=== PATIENT | male | born 1955 | race Caucasian/White ===

== ENCOUNTER 2021-07-18 05:25 | Emergency (ER) | payer MEDICARE, OTHER ==
--- NOTE | 2021-07-18 06:18 | EDM.PDOC ---
<Litzy Garner - Last Filed: 07/18/21 06:28> ED HPI GENERAL MEDICAL PROBLEM - General Chief Complaint: Respiratory Problem Stated Complaint: HIGH BLOOD PRESSURE, HIGH BLOOD SUGAR LEVEL Time Seen by Provider: 07/18/21 05:45 Source of Information: Reports: Patient, RN History Limitations: Reports: No Limitations - History of Present Illness INITIAL COMMENTS - FREE TEXT/NARRATIVE: ED with c/o blood pressure reading high this am and blood sugar higher than usual. BP 180's/100 and BS 140. Has had cold sx since Monday, low grade fever body aches decreased appetite, no nausea or vomiting. Cough non productive, no chills. No headache. No swelling. Unable to sleep due to cough. Has taken OTC cold medication. Has not taken BP med or Metformin for 2 days. - Related Data Allergies Allergy/AdvReac Type Severity Reaction Status Date / Time No Known Allergies Allergy Verified 09/16/20 08:11 Home Meds: Home Meds Aspirin/Calcium Carbonate/Mag [Aspirin Buffered 325 mg Tab] 325 mg PO DAILY 12/16/15 [History] Chlorthalidone 25 mg PO DAILY 12/16/15 [History] Lisinopril 10 mg PO DAILY 12/16/15 [History] Metoprolol Tartrate 25 mg PO BID 12/16/15 [History] Simvastatin 20 mg PO BEDTIME 12/16/15 [History] metFORMIN [Glucophage] 500 mg PO BID 12/16/15 [History] Past Medical History - Past Health History Medical/Surgical History: Denies Medical/Surgical History HEENT History: Reports: None Cardiovascular History: Reports: Hypertension Respiratory History: Reports: None Gastrointestinal History: Reports: None Genitourinary History: Reports: None Musculoskeletal History: Reports: Arthritis Neurological History: Reports: TIA Psychiatric History: Reports: None Endocrine/Metabolic History: Reports: Diabetes, Type II Hematologic History: Reports: None Dermatologic History: Reports: None - Infectious Disease History Infectious Disease History: Reports: None - Past Surgical History Cardiovascular Surgical History: Reports: None Endocrine Surgical History: Reports: None Neurological Surgical History: Reports: None Musculoskeletal Surgical History: Reports: None Social & Family History - Family History Family Medical History: No Pertinent Family History - Tobacco Use Tobacco Use Status *Q: Never Tobacco User Second Hand Smoke Exposure: No - Caffeine Use Caffeine Use: Reports: Coffee - Recreational Drug Use Recreational Drug Use: No ED ROS GENERAL - Review of Systems Review Of Systems: Comprehensive ROS is negative, except as noted in HPI. ED EXAM, GENERAL - Physical Exam Exam: See Below Exam Limited By: No Limitations General Appearance: Alert, Anxious, Mild Distress Eye Exam: Bilateral Eye: EOMI Ears: Normal External Exam, Normal TMs Nose: Normal Inspection Throat/Mouth: Normal Inspection Head: Atraumatic, Normocephalic Neck: Normal Inspection Respiratory/Chest: No Respiratory Distress, Lungs Clear (e), Wheezing (coarse expiratory bilateral lower), Other (frequent bronchial loose cough) Cardiovascular: Normal Peripheral Pulses, Regular Rate, Rhythm, Tachycardia GI/Abdominal: Normal Bowel Sounds, Soft Extremities: Normal Inspection Neurological: Alert, Oriented, Normal Gait, No Motor/Sensory Deficits Psychiatric: Anxious Skin Exam: Warm, Dry, Intact, Tattoo(s) #1 Interpretation EKG Date: 07/18/21 Time: 05:37 Rhythm: NSR [place]: LAD-Left [place] Deviation P-Wave: Present QRS: Normal ST-T: Normal Comparison: NA - No Prior EKG Departure - Departure Disposition: Home, Self-Care 01 Condition: Fair Clinical Impression: Influenza B, Hyperglycemia due to diabetes mellitus, Hypokalemia, Hypomagnesemia, Hyponatremia Hypertension Qualifiers: Hypertension type: unspecified Qualified Code(s): I10 - Essential (primary) hypertension - Discharge Information *PRESCRIPTION DRUG MONITORING PROGRAM REVIEWED*: No *COPY OF PRESCRIPTION DRUG MONITORING REPORT IN PATIENT STUART: No Instructions: Influenza, Adult, [id number], Hyponatremia, [id number] Forms: ED Department Discharge Additional Instructions: take medication as directed humidification diet as tolerated increase fluids tylenol 500mg every 4 hours as needed for discomfort/fever diabetic robitussin or muccinex for cough per label instructions avoid cough cold medications unless labeled for use with hypertension Care Plan Goals: The patient was advised of the examination and lab results during the visit. The patient was given a liter of IV fluids, IV Magnesium, IV Potassium, oral Tessalon Pearles, oral Robitussin AC and an oral dose of Tamiflu. The patient was discharged with scripts for 1) Robitussin AC #150 mL to take 10 mL by mouth every 6 hours as needed, 2) Tamiflu (75 mg) #9 to take 1 by mouth 2 times per day for 5 days and 3) Tessalon Pearles (200 mg) #30 to take 1 by mouth 3 times per day as needed. The patient was encouraged to increase his salt intake and take his medications as prescribed. If the patient has any additional symptoms or concerns, the patient should either return to the emergency department or visit his primary care facility. Sepsis Event Note (ED) - Evaluation Sepsis Screening Result: No Definite Risk <Huseyin Awan - Last Filed: 07/18/21 10:22> Course - Vital Signs Last Recorded V/S: Last Vital Signs Temp 98.4 F 07/18/21 09:43 Pulse 103 H 07/18/21 09:43 Resp 20 07/18/21 09:43 BP 177/99 H 07/18/21 09:43 Pulse Ox 97 07/18/21 09:43 - Orders/Labs/Meds Orders: Active Orders 24 hr Category Date Time Status Blood Glucose Check, Bedside [RC] ONETIME Care 07/18/21 05:35 Active Chest 2V [CR] Urgent Exams 07/18/21 07:16 Stop Req CULTURE BLOOD [BC] Stat Lab 07/18/21 05:55 Received Sodium Chloride 0.9% [Normal Saline] 1,000 ml Med 07/18/21 06:38 Active IV .BOLUS Medication Orders Sodium Chloride (Normal Saline) 1,000 mls @ 100 mls/hr IV .BOLUS ONE Stop: 07/18/21 16:37 Last Admin: 07/18/21 06:47 Dose: 100 mls/hr Documented by: DINESH Labs: Laboratory Tests 07/18/21 07/18/21 07/18/21 Range/Units 05:31 05:55 05:55 WBC 8.2 (5.0-10.0) 10^3/uL RBC 4.19 L (4.6-6.2) 10^6/uL Hgb 12.3 L D (14.0-18.0) g/dL Hct 35.0 L (40.0-54.0) % MCV 83.5 D (80-100) fL MCH 29.4 (27.0-34.0) pg MCHC 35.1 H (33.0-35.0) g/dL Plt Count 159 D (150-450) 10^3/uL Neut % (Auto) 78.7 H (42.2-75.2) % Lymph % (Auto) 8.2 L (20.5-50.1) % Ballard % (Auto) 12.4 H (2-8) % Eos % (Auto) 0.5 L (1.0-3.0) % Baso % (Auto) 0.2 (0.0-1.0) % Sodium (136-145) mmol/L Potassium (3.5-5.1) mmol/L Chloride (98-107) mmol/L Carbon Dioxide (21-32) mmol/L Anion Gap (7-13) mEq/L BUN (7-18) mg/dL Creatinine (0.70-1.30) mg/dL Est Cr Clr Drug Dosing mL/min Estimated GFR (MDRD) BUN/Creatinine Ratio (No establ ref range) Glucose (70-99) mg/dL POC Glucose 218 H (70-99) mg/dL Lactic Acid (0.4-2.0) mmol/L Calcium (8.5-10.1) mg/dL Magnesium (1.8-2.4) mg/dL Total Bilirubin (0.2-1.0) mg/dL AST (15-37) U/L ALT (16-63) U/L Alkaline Phosphatase (46-116) U/L Troponin I High Sens (<=76) pg/mL Total Protein (6.4-8.2) g/dL Albumin (3.4-5.0) g/dL Globulin Albumin/Globulin Ratio SARS-CoV-2 RNA (BEN) Negative (NEGATIVE) 07/18/21 07/18/21 07/18/21 Range/Units 05:55 05:55 05:55 WBC (5.0-10.0) 10^3/uL RBC (4.6-6.2) 10^6/uL Hgb (14.0-18.0) g/dL Hct (40.0-54.0) % MCV (80-100) fL MCH (27.0-34.0) pg MCHC (33.0-35.0) g/dL Plt Count (150-450) 10^3/uL Neut % (Auto) (42.2-75.2) % Lymph % (Auto) (20.5-50.1) % Ballard % (Auto) (2-8) % Eos % (Auto) (1.0-3.0) % Baso % (Auto) (0.0-1.0) % Sodium 125 L (136-145) mmol/L Potassium 3.2 L (3.5-5.1) mmol/L Chloride 86 L (98-107) mmol/L Carbon Dioxide 27 (21-32) mmol/L Anion Gap 15.2 H (7-13) mEq/L BUN 8 (7-18) mg/dL Creatinine 1.06 (0.70-1.30) mg/dL Est Cr Clr Drug Dosing 69.82 mL/min Estimated GFR (MDRD) > 60 BUN/Creatinine Ratio 7.5 (No establ ref range) Glucose 219 H (70-99) mg/dL POC Glucose (70-99) mg/dL Lactic Acid 2.1 H* (0.4-2.0) mmol/L Calcium 8.6 (8.5-10.1) mg/dL Magnesium 1.3 L (1.8-2.4) mg/dL Total Bilirubin 0.4 (0.2-1.0) mg/dL AST 17 (15-37) U/L ALT 26 (16-63) U/L Alkaline Phosphatase 114 (46-116) U/L Troponin I High Sens 6 (<=76) pg/mL Total Protein 7.6 (6.4-8.2) g/dL Albumin 4.2 (3.4-5.0) g/dL Globulin 3.4 Albumin/Globulin Ratio 1.2 SARS-CoV-2 RNA (BEN) (NEGATIVE) 07/18/21 Range/Units 09:53 WBC (5.0-10.0) 10^3/uL RBC (4.6-6.2) 10^6/uL Hgb (14.0-18.0) g/dL Hct (40.0-54.0) % MCV (80-100) fL MCH (27.0-34.0) pg MCHC (33.0-35.0) g/dL Plt Count (150-450) 10^3/uL Neut % (Auto) (42.2-75.2) % Lymph % (Auto) (20.5-50.1) % Ball[place] % (Auto) (2-8) % Eos % (Auto) (1.0-3.0) % Baso % (Auto) (0.0-1.0) % Sodium 125 L (136-145) mmol/L Potassium 3.3 L (3.5-5.1) mmol/L Chloride 85 L (98-107) mmol/L Carbon Dioxide 28 (21-32) mmol/L Anion Gap 15.3 H (7-13) mEq/L BUN 7 (7-18) mg/dL Creatinine 0.93 (0.70-1.30) mg/dL Est Cr Clr Drug Dosing 79.58 mL/min Estimated GFR (MDRD) > 60 BUN/Creatinine Ratio (No establ ref range) Glucose 161 H (70-99) mg/dL POC Glucose (70-99) mg/dL Lactic Acid (0.4-2.0) mmol/L Calcium 8.4 L (8.5-10.1) mg/dL Magnesium 2.0 (1.8-2.4) mg/dL Total Bilirubin (0.2-1.0) mg/dL AST (15-37) U/L ALT (16-63) U/L Alkaline Phosphatase (46-116) U/L Troponin I High Sens (<=76) pg/mL Total Protein (6.4-8.2) g/dL Albumin (3.4-5.0) g/dL Globulin Albumin/Globulin Ratio SARS-CoV-2 RNA (BEN) (NEGATIVE) Meds: Medications Generic Name Dose Route Start Last Admin Trade Name Freq PRN Reason Stop Dose Admin Sodium Chloride 1,000 mls @ 100 mls/hr 07/18/21 06:38 07/18/21 06:47 Normal Saline IV 07/18/21 16:37 100 mls/hr .BOLUS ONE Administration Discontinued Medications Generic Name Dose Route Start Last Admin Trade Name Freq PRN Reason Stop Dose Admin Benzonatate 200 mg 07/18/21 09:45 07/18/21 09:49 Benzonatate 100 Mg Cap PO 07/18/21 09:46 200 mg ONETIME ONE Administration Guaifenesin 100 mg 07/18/21 06:41 07/18/21 06:51 Guaifenesin 100 Mg/5 Ml Soln 5 Ml Ud Cup PO 07/18/21 06:42 100 mg ONETIME ONE Administration Magnesium Sulfate 2 gm/ Premix 50 mls @ 25 mls/hr 07/18/21 06:38 07/18/21 06:48 IV 07/18/21 08:37 25 mls/hr ONETIME ONE Administration Potassium Chloride 10 meq/ 100 mls @ 100 mls/hr 07/18/21 06:38 07/18/21 06:52 Premix IV 07/18/21 07:37 100 mls/hr ONETIME ONE Administration Oseltamivir Phosphate 75 mg 07/18/21 07:37 07/18/21 07:44 Oseltamivir 75 Mg Cap PO 07/18/21 07:38 75 mg ONETIME ONE Administration Departure - Departure Time of Disposition: 10:16 Sepsis Event Note (ED) - Focused Exam Vital Signs: Vital Signs Temp Pulse Resp BP Pulse Ox 07/18/21 09:43 98.4 F 103 H 20 177/99 H 97 07/18/21 05:41 99.7 F 119 H 20 189/90 H 96 - My Orders Last 24 Hours: My Active Orders 07/18/21 07:16 Chest 2V [CR] Urgent - Assessment/Plan Last 24 Hours: My Active Orders 07/18/21 07:16 Chest 2V [CR] Urgent
--- NOTE | 2021-07-18 06:19 | CR ---
PROCEDURE INFORMATION: Exam: XR Chest Exam date and time: 07/18/2021 5:49 AM Age: 66 years old Clinical indication: Shortness of breath; Additional info: Cough TECHNIQUE: Imaging protocol: XR of the chest. Views: 1 view. COMPARISON: No relevant prior studies available. FINDINGS: Lungs: Unremarkable. No consolidation. Pleural spaces: Unremarkable. No pleural effusion. No pneumothorax. Heart/Mediastinum: Unremarkable. No cardiomegaly. Bones/joints: Unremarkable. IMPRESSION: No acute findings.
[2021-07-18 06:27] LABS: ANION GAP 15.2 mEq/L (7-13); CHLORIDE,CL 86 mmol/L (98-107); SODIUM,NA 125 mmol/L (136-145)
[2021-07-18] MEDS ORDERED: Sodium Chloride 0.9% 1,000 ML IV ONE (06:38)
[2021-07-18] MEDS ORDERED: Potassium Chloride 10 MEQ in Premix Bag 1 BAG IV ONE (06:38)
[2021-07-18] MEDS ORDERED: Magnesium Sulfate/Water 2 GM in Premix Bag 1 BAG IV ONE (06:38)
[2021-07-18] MEDS ORDERED: guaiFENesin 100 MG/5 ML Soln 5 ML UD Cup PO ONE (06:41)
[2021-07-18] MEDS ORDERED: Oseltamivir 75 MG Cap PO ONE (07:37)
[2021-07-18 09:44] VITALS: BP 177/99; PULSE 103
[2021-07-18] MEDS ORDERED: Benzonatate 100 MG Cap PO ONE (09:45)
[2021-07-18 10:11] LABS: ANION GAP 15.3 mEq/L (7-13); CHLORIDE,CL 85 mmol/L (98-107); SODIUM,NA 125 mmol/L (136-145)
== END 2021-07-18 10:36 | disposition home or self-care (01) ==
LOC: DL.ED 05:25
DX: J10.1 Influenza due to other identified influenza virus with other respiratory manifestations (principal); E11.65 Type 2 diabetes mellitus with hyperglycemia; E87.6 Hypokalemia; E87.1 Hypo-osmolality and hyponatremia; E83.42 Hypomagnesemia; E11.9 Type 2 diabetes mellitus without complications; I10 Essential (primary) hypertension; Z79.82 Long term (current) use of aspirin; Z79.899 Other long term (current) drug therapy
CPT/HCPCS: 36415; 71045; 80048; 80053; 82947; 83605; 83735; 84484; 85025; 87040; 87804; 93005; 96365; 96366; 96368; 99284; A9270; J3475; J3480; J7030; U0002

== ENCOUNTER 2021-07-23 10:14 | Inpatient (IN) | payer MEDICARE, OTHER ==
--- NOTE | 2021-07-23 11:11 | EDM.PDOC ---
ED HPI GENERAL MEDICAL PROBLEM - General Chief Complaint: Respiratory Problem Stated Complaint: INFLUENZA Time Seen by Provider: 07/23/21 10:55 Source of Information: Reports: Patient, RN, RN Notes Reviewed History Limitations: Reports: No Limitations - History of Present Illness INITIAL COMMENTS - FREE TEXT/NARRATIVE: Alan is a 66 y/o male with a history of HTN and diabetes mellitus Type II, who presents to the ED at the request of his PCP from [facility] [address] for complaints of persistent cough, nausea, and constipation. The patient was evaluated in this facility four days ago and was subsequently diagnosed with Influenza B. The patient states he is concerned as his symptoms have not completely resolved despite Tamiflu and Robitussin. He notes he has not experienced a bowel movement for five days, which is not his normal routine. Additionally, he notes nausea with one bout of emesis this morning. He denies fever, shaking chills, dizziness, chest pain/pressure, palpitations, shortness of breath, dyspepsia, hematemesis, dysuria, hematuria, or hematochezia. Abdomen Pain Score (Numeric/FACES): 5 - Related Data Allergies Allergy/AdvReac Type Severity Reaction Status Date / Time No Known Allergies Allergy Verified 09/16/20 08:11 Home Meds: Home Meds Aspirin/Calcium Carbonate/Mag [Aspirin Buffered 325 mg Tab] 325 mg PO DAILY 12/16/15 [History] Chlorthalidone 25 mg PO DAILY 12/16/15 [History] Lisinopril 10 mg PO DAILY 12/16/15 [History] Simvastatin 30 mg PO BEDTIME 12/16/15 [History] metFORMIN [Glucophage] 1,000 mg PO BID 12/16/15 [History] Metoprolol Tartrate 50 mg PO BID 07/24/21 [History] Past Medical History - Past Health History Medical/Surgical History: Denies Medical/Surgical History HEENT History: Reports: None Cardiovascular History: Reports: Hypertension Respiratory History: Reports: None Gastrointestinal History: Reports: None Genitourinary History: Reports: None Musculoskeletal History: Reports: Arthritis Neurological History: Reports: TIA Psychiatric History: Reports: None Endocrine/Metabolic History: Reports: Diabetes, Type II Hematologic History: Reports: None Dermatologic History: Reports: None - Infectious Disease History Infectious Disease History: Reports: None - Past Surgical History Cardiovascular Surgical History: Reports: None Endocrine Surgical History: Reports: None Neurological Surgical History: Reports: None Musculoskeletal Surgical History: Reports: None Social & Family History - Family History Family Medical History: No Pertinent Family History - Caffeine Use Caffeine Use: Reports: Coffee ED ROS GENERAL - Review of Systems Review Of Systems: Comprehensive ROS is negative, except as noted in HPI. ED EXAM, GENERAL - Physical Exam Exam: See Below Exam Limited By: No Limitations General Appearance: Alert, No Apparent Distress Eye Exam: Bilateral Eye: EOMI, Normal Inspection, PERRL (3mm) Ears: Normal External Exam, Normal Canal, Hearing Grossly Normal. No: Normal TMs (Cerumen impaction, bilaterally) Nose: Normal Inspection, Normal Mucosa, No Blood Throat/Mouth: Normal Inspection, Normal Oropharynx, Normal Voice, No Airway Compromise Head: Atraumatic, Normocephalic Neck: Normal Inspection, Supple, Non-Tender, Full Range of Motion. No: Lymphadenopathy (L), Lymphadenopathy (R) Respiratory/Chest: No Respiratory Distress, No Accessory Muscle Use, Chest Non- Tender, Wheezing (Expiratory, diffuse). No: Crackles, Rales, Rhonchi, Stridor Cardiovascular: Normal Peripheral Pulses, Regular Rate, Rhythm, No Gallop, No JVD, No Murmur, No Rub. No: No Edema Peripheral Pulses: 2+: Radial (L), Radial (R) GI/Abdominal: Distended, Abnormal Bowel Sounds (Hypoactive bowel sounds). No: Guarding, Rigid, Rebound (Male) Exam: Deferred Rectal (Males) Exam: No: Decreased Rectal Tone, Fecal Impaction, Rectal Fissure, Tenderness Back Exam: Normal Inspection, Full Range of Motion Extremities: Normal Inspection, Normal Range of Motion, Normal Capillary Refill, Pedal Edema (+1 pitting, bilaterally) Neurological: Alert, Oriented, CN II-XII Intact, Normal Cognition, Normal Gait, No Motor/Sensory Deficits Psychiatric: Normal Affect, Normal Mood Skin Exam: Warm, Dry, Intact, Normal Color, No Rash. No: Cyanosis, Jaundice, Mottled, Pallor Course - Vital Signs Last Recorded V/S: Last Vital Signs Temp 96.3 F L 07/25/21 11:44 Pulse 102 H 07/25/21 11:44 Resp 20 07/25/21 11:44 BP 145/74 H 07/25/21 10:45 Pulse Ox 99 07/25/21 11:44 - Orders/Labs/Meds Labs: Laboratory Tests 07/23/21 07/23/21 07/23/21 Range/Units 10:54 10:54 10:54 WBC 11.7 H (5.0-10.0) 10^3/uL RBC 4.28 L (4.6-6.2) 10^6/uL Hgb 12.4 L (14.0-18.0) g/dL Hct 35.7 L (40.0-54.0) % MCV 83.4 (80-100) fL MCH 29.0 (27.0-34.0) pg MCHC 34.7 (33.0-35.0) g/dL Plt Count 427 D (150-450) 10^3/uL Neut % (Auto) 77.2 H (42.2-75.2) % Lymph % (Auto) 10.1 L (20.5-50.1) % [place] % (Auto) 11.7 H (2-8) % Eos % (Auto) 0.7 L (1.0-3.0) % Baso % (Auto) 0.3 (0.0-1.0) % Sodium 128 L (136-145) mmol/L Potassium 3.7 (3.5-5.1) mmol/L Chloride 86 L (98-107) mmol/L Carbon Dioxide 31 (21-32) mmol/L Anion Gap 14.7 H (7-13) mEq/L BUN 18 (7-18) mg/dL Creatinine 1.25 (0.70-1.30) mg/dL Est Cr Clr Drug Dosing TNP Estimated GFR (MDRD) 58 BUN/Creatinine Ratio 14.4 (No establ ref range) Glucose 180 H (70-99) mg/dL Lactic Acid 1.5 (0.4-2.0) mmol/L Calcium 9.5 (8.5-10.1) mg/dL Magnesium 2.0 (1.8-2.4) mg/dL Total Bilirubin 0.5 (0.2-1.0) mg/dL AST 16 (15-37) U/L ALT 24 (16-63) U/L Alkaline Phosphatase 114 (46-116) U/L C-Reactive Protein 2.5 H (0.0-0.9) mg/dL Total Protein 8.2 (6.4-8.2) g/dL Albumin 4.1 (3.4-5.0) g/dL Globulin 4.1 Albumin/Globulin Ratio 1.0 Urine Color (YELLOW) Urine Appearance (CLEAR) Urine pH (5.0-9.0) Ur Specific [place] (1.005-1.030) Urine Protein (NEGATIVE) Urine Glucose (UA) (NEGATIVE) Urine Ketones (NEGATIVE) Urine Occult Blood (NEGATIVE) Urine Nitrite (NEGATIVE) Urine Bilirubin (NEGATIVE) Urine Urobilinogen (0.2-1.0) mg/dL Ur Leukocyte Esterase (NEGATIVE) 07/23/21 Range/Units 19:10 WBC (5.0-10.0) 10^3/uL RBC (4.6-6.2) 10^6/uL Hgb (14.0-18.0) g/dL Hct (40.0-54.0) % MCV (80-100) fL MCH (27.0-34.0) pg MCHC (33.0-35.0) g/dL Plt Count (150-450) 10^3/uL Neut % (Auto) (42.2-75.2) % Lymph % (Auto) (20.5-50.1) % [place]assen % (Auto) (2-8) % Eos % (Auto) (1.0-3.0) % Baso % (Auto) (0.0-1.0) % Sodium (136-145) mmol/L Potassium (3.5-5.1) mmol/L Chloride (98-107) mmol/L Carbon Dioxide (21-32) mmol/L Anion Gap (7-13) mEq/L BUN (7-18) mg/dL Creatinine (0.70-1.30) mg/dL Est Cr Clr Drug Dosing Estimated GFR (MDRD) BUN/Creatinine Ratio (No establ ref range) Glucose (70-99) mg/dL Lactic Acid (0.4-2.0) mmol/L Calcium (8.5-10.1) mg/dL Magnesium (1.8-2.4) mg/dL Total Bilirubin (0.2-1.0) mg/dL AST (15-37) U/L ALT (16-63) U/L Alkaline Phosphatase (46-116) U/L C-Reactive Protein (0.0-0.9) mg/dL Total Protein (6.4-8.2) g/dL Albumin (3.4-5.0) g/dL Globulin Albumin/Globulin Ratio Urine Color Yellow (YELLOW) Urine Appearance Clear (CLEAR) Urine pH 6.0 (5.0-9.0) Ur Specific [place] 1.020 (1.005-1.030) Urine Protein Negative (NEGATIVE) Urine Glucose (UA) Negative (NEGATIVE) Urine Ketones Trace H (NEGATIVE) Urine Occult Blood Negative (NEGATIVE) Urine Nitrite Negative (NEGATIVE) Urine Bilirubin Negative (NEGATIVE) Urine Urobilinogen 0.2 (0.2-1.0) mg/dL Ur Leukocyte Esterase Negative (NEGATIVE) Meds: Medications Discontinued Medications Generic Name Dose Route Start Last Admin Trade Name Freq PRN Reason Stop Dose Admin Benzocaine 1 ml 07/23/21 17:28 07/23/21 19:33 Benzocaine 20% Oral [place] 59.2 Ml Canister MUCMEM 07/23/21 17:29 Not Given ONETIME ONE Benzocaine Confirm 07/23/21 17:38 Benzocaine 20% Topical [place] Ud Administered 07/23/21 17:39 Dose 1 each .ROUTE .STK-MED ONE Benzocaine 1 each 07/23/21 19:45 07/23/21 19:33 Benzocaine 20% Topical [place] Ud MUCMEM 07/23/21 19:46 1 each ONETIME ONE Administration Benzocaine 1 each 07/23/21 17:45 Benzocaine 20% Topical [place] Ud MUCMEM 07/23/21 17:46 .STK-MED ONE Benzocaine/Menthol 1 lozenge 07/24/21 12:02 07/24/21 13:03 Benzocaine/Cetylpyridinium/Menthol Lozenge MUCMEM 1 lozenge Q2H PRN Administration Sore Throat Dextrose/Water 25 ml 07/24/21 13:07 50% Dextrose In Water 50 Ml Syringe IVPUSH ASDIRECTED PRN Hypoglycemia BS<70 Heparin Sodium (Porcine) 5,000 units 07/24/21 14:00 07/25/21 17:29 Heparin Sodium 5,000 Units/Ml Vial SUBCUT Not Given Q8HR MIGUEL ÁNGEL Hydromorphone HCl 0.5 mg 07/23/21 20:04 07/24/21 22:39 Hydromorphone 0.5 Mg/0.5 Ml Syringe IVPUSH 0.5 mg Q1H PRN Administration Pain (severe 7-10) Sodium Chloride 1,000 mls @ 999 mls/hr 07/23/21 11:25 07/23/21 11:30 Normal Saline IV 07/23/21 12:25 999 mls/hr .BOLUS ONE Administration Sodium Chloride 1,000 mls @ 999 mls/hr 07/23/21 14:49 07/23/21 14:56 Normal Saline IV 07/23/21 15:49 999 mls/hr .BOLUS ONE Administration Ceftriaxone Sodium 2 gm/ 100 mls @ 200 mls/hr 07/23/21 19:21 07/23/21 22:13 Sodium Chloride IV 07/23/21 19:50 Not Given ONETIME ONE Lactated Ringer's 1,000 mls @ 125 mls/hr 07/23/21 20:15 07/25/21 02:35 Ringers, Lactated IV 125 mls/hr ASDIRECTED MIGUEL ÁNGEL Administration Ampicillin Sodium/Sulbactam 100 mls @ 100 mls/hr 07/23/21 20:15 07/24/21 12:50 Sodium 3 gm/ Sodium Chloride IV 100 mls/hr Q6HR MIGUEL ÁNGEL Administration Potassium Chloride 10 meq/ 100 mls @ 100 mls/hr 07/24/21 13:00 07/24/21 18:02 Premix IV 07/24/21 19:59 Not Given Q2H [facility] Insulin Human Lispro 0 unit 07/24/21 18:00 07/25/21 17:28 Insulin Lispro 100 Units/Ml 3 Ml Vial SUBCUT Not Given WITHMEALSANDBED [facility] Protocol Iopamidol 100 ml 07/23/21 17:27 07/23/21 17:59 Iopamidol 612 Mg/Ml 100 Ml Bottle IVPUSH 07/23/21 17:28 100 ml ONETIME ONE Administration Lisinopril 20 mg 07/24/21 13:15 07/25/21 10:45 Lisinopril 20 Mg Tab PO 20 mg DAILY MIGUEL ÁNGEL Administration Lorazepam 0.5 mg 07/24/21 12:04 Lorazepam 0.5 Mg Tab PO Q8H PRN Anxiety Magnesium Citrate 296 ml 07/23/21 11:54 07/23/21 12:00 Magnesium Citrate Solution 296 Ml Bottle PO 07/23/21 11:55 296 ml ONETIME ONE Administration Metoprolol Tartrate 25 mg 07/24/21 13:15 07/25/21 10:45 Metoprolol Tartrate 25 Mg Tab PO 25 mg BID MIGUEL ÁNGEL Administration Ondansetron HCl 4 mg 07/23/21 11:53 07/23/21 11:59 Ondansetron 4 Mg/2 Ml Sdv IVPUSH 07/23/21 11:54 4 mg ONETIME ONE Administration Ondansetron HCl 4 mg 07/23/21 20:04 07/23/21 23:01 Ondansetron 4 Mg/2 Ml Sdv IVPUSH 4 mg Q6H PRN Administration Nausea/Vomiting Patient's Own 1 each 07/23/21 23:05 MedicationHobbs's PO Cough Drops Q2H PRN Cough Potassium Chloride 40 meq 07/24/21 12:45 07/24/21 14:55 Potassium Chloride 10 Meq Tab.Er PO 07/24/21 12:46 Not Given ONETIME ONE - Radiology Interpretation Free Text/Narrative:: [facility] Final Radiology Report Call: [phone] assistance Online chat: [email or web address] Name: ALAN MORGAN Age: 66Years M Date: 07/23/2021 SSN: -- : [id number] Study: CR ABDOMEN 2V AP FLAT UPRIGHT Requesting Physician: Shari Galvez Images: 4 Addl Studies: Provided Clinical History: No BM for 5 days Contrast: Contrast Medium: Contrast Amount: Contrast Method: CONFIDENTIALITY STATEMENT This report is intended only for use by the referring physician, and only in accordance with law. If you received this in error, call [phone]. Page 1 of 1 PROCEDURE INFORMATION: Exam: XR Abdomen Exam date and time: 07/23/2021 10:50 AM Age: 66 years old Clinical indication: Other: No bm for 5 days TECHNIQUE: Imaging protocol: XR of the abdomen. Views: 2 Views. Upright and supine views. COMPARISON: CR Chest 1V Frontal 07/18/2021 5:49 AM FINDINGS: Gastrointestinal tract: Dilated loops of large and small bowel with colon predominating. Tapering of the distal descending colon. Advanced stool load right cecum and ascending colon proximal to hepatic flexure. No organomegaly. Intraperitoneal space: No free air. Bones/joints: Unremarkable for age. IMPRESSION: Moderate colonic distension. Transitional narrowing/decompression of distal descending colon versus moderate constipation may contribute to colonic distension. Thank you for allowing us to participate in the care of your patient. Dictated and Authenticated by: Ana Kay MD 07/23/2021 11:39 AM Central Time ([place] & [place]) [facility] Final Radiology Report Call: [phone] assistance Online chat: [email or web address] Name: ALAN MORGAN Age: 66Years M Date: 07/23/2021 SSN: -- : [id number] Study: CR CHEST 2V Requesting Physician: Shari Galvez Images: 2 Addl Studies: Provided Clinical History: No BM for 5 days Contrast: Contrast Medium: Contrast Amount: Contrast Method: CONFIDENTIALITY STATEMENT This report is intended only for use by the referring physician, and only in accordance with law. If you received this in error, call [phone]. Page 1 of 1 PROCEDURE INFORMATION: Exam: XR Chest Exam date and time: 07/23/2021 10:51 AM Age: 66 years old Clinical indication: Other: No bm for 5 days, influenza + TECHNIQUE: Imaging protocol: XR of the chest. Views: 2 views. COMPARISON: CR Chest 1V Frontal 07/18/2021 5:49 AM FINDINGS: Lungs: No acute infiltrates. No consolidation. Elevation right hemidiaphragm in comparison to prior exam secondary to hepatic flexure dilated bowel loops. Pleural spaces: Unremarkable. No pleural effusion. No pneumothorax. Heart/Mediastinum: Unremarkable. No cardiomegaly. Bones/joints: Unremarkable. IMPRESSION: 1. No acute cardiac or pulmonary findings. 2. Elevation right hemidiaphragm. Thank you for allowing us to participate in the care of your patient. Dictated and Authenticated by: Ana Kay MD 07/23/2021 11:48 AM Central Time ([place] & [place]) - Re-Assessments/Exams Free Text/Narrative Re-Assessment/Exam: 07/23/21 Xray of abdomen, flat and upright obtained. Findings of examination and imaging reviewed with patient. Will treat constipation with mag citrate. Patient had one small bowel movement, but remains significantly distended. Will place NG and obtain CT abdomen/pelvis. Case discussed with Dr. Mirza who kindly accepted patient for admission Patient verbalized understanding and agreement with the plan of care. Departure - Departure Time of Disposition: 10:29 Disposition: Admitted As Inpatient 65 Condition: Fair Clinical Impression: Pyelonephritis, Ileus Constipation Qualifiers: Constipation type: other constipation type Qualified Code(s): K59.09 - Other constipation - Discharge Information
[2021-07-23 11:23] LABS: ANION GAP 14.7 mEq/L (7-13); CHLORIDE,CL 86 mmol/L (98-107); SODIUM,NA 128 mmol/L (136-145)
[2021-07-23] MEDS ORDERED: Sodium Chloride 0.9% 1,000 ML IV ONE ×2 (11:25→14:49)
--- NOTE | 2021-07-23 11:39 | CR ---
PROCEDURE INFORMATION: Exam: XR Abdomen Exam date and time: 07/23/2021 10:50 AM Age: 66 years old Clinical indication: Other: No bm for 5 days TECHNIQUE: Imaging protocol: XR of the abdomen. Views: 2 Views. Upright and supine views. COMPARISON: CR Chest 1V Frontal 07/18/2021 5:49 AM FINDINGS: Gastrointestinal tract: Dilated loops of large and small bowel with colon predominating. Tapering of the distal descending colon. Advanced stool load right cecum and ascending colon proximal to hepatic flexure. No organomegaly. Intraperitoneal space: No free air. Bones/joints: Unremarkable for age. IMPRESSION: Moderate colonic distension. Transitional narrowing/decompression of distal descending colon versus moderate constipation may contribute to colonic distension.
--- NOTE | 2021-07-23 11:48 | CR ---
PROCEDURE INFORMATION: Exam: XR Chest Exam date and time: 07/23/2021 10:51 AM Age: 66 years old Clinical indication: Other: No bm for 5 days, influenza + TECHNIQUE: Imaging protocol: XR of the chest. Views: 2 views. COMPARISON: CR Chest 1V Frontal 07/18/2021 5:49 AM FINDINGS: Lungs: No acute infiltrates. No consolidation. Elevation right hemidiaphragm in comparison to prior exam secondary to hepatic flexure dilated bowel loops. Pleural spaces: Unremarkable. No pleural effusion. No pneumothorax. Heart/Mediastinum: Unremarkable. No cardiomegaly. Bones/joints: Unremarkable. IMPRESSION: 1. No acute cardiac or pulmonary findings. 2. Elevation right hemidiaphragm.
[2021-07-23] MEDS ORDERED: Ondansetron 4 MG/2 ML SDV IVPUSH ONE (11:53)
[2021-07-23] MEDS ORDERED: Magnesium Citrate Solution 296 ML Bottle PO ONE (11:54)
[2021-07-23] MEDS ORDERED: Iopamidol 612 MG/ML 100 ML Bottle IVPUSH ONE (17:27)
[2021-07-23] MEDS ORDERED: Benzocaine 20% Oral Spray 59.2 ML Canister MUCMEM ONE (17:28)
[2021-07-23] MEDS ORDERED: Benzocaine 20% Topical Spray UD ONE (17:38)
[2021-07-23] MEDS ORDERED: Benzocaine 20% Topical Spray UD MUCMEM ONE ×2 (17:45→19:45)
--- NOTE | 2021-07-23 19:08 | CT ---
PROCEDURE INFORMATION: Exam: CT Abdomen And Pelvis With Contrast Exam date and time: 07/23/2021 6:17 PM Age: 66 years old Clinical indication: Other: Pain, wbc 11,700; Additional info: Constipation; R/O obstruction TECHNIQUE: Imaging protocol: Computed tomography of the abdomen and pelvis with contrast. Radiation optimization: All CT scans at this facility use at least one of these dose optimization techniques: automated exposure control; mA and/or kV adjustment per patient size (includes targeted exams where dose is matched to clinical indication); or iterative reconstruction. Contrast material: [id number]; Contrast volume: 100 ml; Contrast route: INTRAVENOUS (IV); COMPARISON: CR Abdomen 2V AP Flat Upright 07/23/2021 10:50 AM FINDINGS: Liver: Normal. No mass. Gallbladder and bile ducts: Normal. No calcified stones. No ductal dilation. Pancreas: Normal. No ductal dilation. Spleen: Normal. No splenomegaly. Adrenal glands: Normal. No mass. Kidneys and ureters: Bilateral perirenal stranding. 1.7 cm exophytic left renal cyst. No follow-up imaging recommended. No hydronephrosis. Stomach and bowel: Moderate gas-filled colonic distension with moderate fluid level right ascending colon. No stenosis of the distal descending colon previously appearing decompressed on comparison 07/23/2021 abdominal radiographs. Fluid filled mildly dilated small bowel loops. No evidence of small bowel obstruction. Appendix: No evidence of appendicitis. Intraperitoneal space: Unremarkable. No free air. No significant fluid collection. Vasculature: Unremarkable. No abdominal aortic aneurysm. Lymph nodes: Unremarkable. No enlarged lymph nodes. Urinary bladder: Incomplete bladder distension with circumferential bladder wall thickening. Reproductive: Enlarged prostate gland 4.5 cm transverse. Bones/joints: Unremarkable. No acute fracture. Soft tissues: Right 3.0 fat filled inguinal hernia. Left 4.5 cm fat filled inguinal hernia. IMPRESSION: 1. Findings compatible with ileus. Large colonic levels may be associated with enteritis. 2. Mild constipation. 3. Bilateral fat filled inguinal hernias. 4. Bilateral perirenal stranding correlate with urinalysis for infection. Left water density renal cyst. 5. Bladder wall thickening with mildly enlarged prostate gland. May represent outlet etiology or bladder infection.
[2021-07-23] MEDS ORDERED: cefTRIAXone 2 GM in Sodium Chloride 0.9% 100 ML IV ONE (19:21)
[2021-07-23] MEDS ORDERED: Ondansetron 4 MG/2 ML SDV IVPUSH PRN (20:04)
[2021-07-23] MEDS: Ampicillin/Sulbactam Na 3 GM in Sodium Chloride 0.9% 100 ML IV SCH (21:36)
[2021-07-23] MEDS: Lactated Ringers 1,000 ML IV SCH (22:45)
[2021-07-23] MEDS ORDERED: [UNRECOGNIZED DRUG - OTHER] PO PRN (23:05)
[2021-07-24] MEDS: Ampicillin/Sulbactam Na 3 GM in Sodium Chloride 0.9% 100 ML IV SCH ×3 (02:25→12:50)
[2021-07-24 06:41] LABS: ANION GAP 14.3 mEq/L (7-13); CHLORIDE,CL 90 mmol/L (98-107); SODIUM,NA 132 mmol/L (136-145)
--- NOTE | 2021-07-24 06:42 | PCM.HP ---
H&P History of Present Illness - General Date of Service: 07/23/21 Admit Problem/Dx: Admission Diagnosis/Problem Admission Diagnosis/Problem Ileus - History of Present Illness Initial Comments - Free Text/Narative: Robert is a 66-year-old man who presented to the ER with abdominal distention and pain. He states this began yesterday, and has gotten worse through the day today. He had one episode of vomiting just prior to coming to the ER. ER reports that they have been trying to help him have a bowel movement today, and had a he has had an additional episode of vomiting while here. NG tube is being placed as I approach the patient. White count was only slightly elevated, urinalysis was negative. CT scan of the abdomen and pelvis shows severely distended loops of bowel, but no transition point, no signs of internal hernia. It did show some perinephric stranding and inflammation bilaterally When I speak with Robert about his history, he does comment that for the past several months, he has had a very weak urinary stream, and frequently has to strain to urinate. He feels like he has to urinate quite often. He has not seen a physician for this. Abdomen Pain Score (Numeric/FACES): 5 - Related Data Allergies/Adverse Reactions: Allergies Allergy/AdvReac Type Severity Reaction Status Date / Time No Known Allergies Allergy Verified 09/16/20 08:11 Home Medications: Home Meds Aspirin/Calcium Carbonate/Mag [Aspirin Buffered 325 mg Tab] 325 mg PO DAILY 12/16/15 [History] Chlorthalidone 25 mg PO DAILY 12/16/15 [History] Lisinopril 10 mg PO DAILY 12/16/15 [History] Metoprolol Tartrate 25 mg PO BID 12/16/15 [History] Simvastatin 20 mg PO BEDTIME 12/16/15 [History] metFORMIN [Glucophage] 500 mg PO BID 12/16/15 [History] Past Medical History - Past Health History Medical/Surgical History: Denies Medical/Surgical History HEENT History: Reports: None Cardiovascular History: Reports: Hypertension Respiratory History: Reports: None Gastrointestinal History: Reports: None Genitourinary History: Reports: None Musculoskeletal History: Reports: Arthritis Neurological History: Reports: TIA 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; minor residual L sided weakness Psychiatric History: Reports: None Endocrine/Metabolic History: Reports: Diabetes, Type II Hematologic History: Reports: None Immunologic History: Reports: None Dermatologic History: Reports: None - Infectious Disease History Infectious Disease History: Reports: None - Past Surgical History Cardiovascular Surgical History: Reports: None Endocrine Surgical History: Reports: None Neurological Surgical History: Reports: None Musculoskeletal Surgical History: Reports: None Social & Family History - Family History Family Medical History: No Pertinent Family History - Tobacco Use Tobacco Use Status *Q: Never Tobacco User Second Hand Smoke Exposure: No - Caffeine Use Caffeine Use: Reports: Coffee - Recreational Drug Use Recreational Drug Use: No H&P Review of Systems - Review of Systems: Review Of Systems: See Below General: Denies: Weight Loss, Weight Gain HEENT: Denies: Hearing Changes, Visual Changes Pulmonary: Denies: Shortness of Breath, Cough Cardiovascular: Denies: Chest Pain, Palpitations Gastrointestinal: Denies: Hematochezia, Melena Genitourinary: Reports: Other (As in HPI, has had weak stream as well as increased urinary frequency for quite some time.) Musculoskeletal: Denies: Joint Pain, Joint Swelling Skin: Denies: Rash, Lesions Hematologic/Lymphatic: Denies: Easy Bleeding, Easy Bruising Review of Systems Comment:: Rest of his review of systems is complete and negative Exam - Exam Exam: See Below - Vital Signs Vital Signs: Last Vital Signs Temp 98.8 F 07/24/21 04:00 Pulse 103 H 07/24/21 04:00 Resp 16 07/24/21 04:00 BP 142/91 H 07/24/21 04:00 Pulse Ox 94 L 07/24/21 04:00 Weight: 208 lb 3.2 oz - Exam Physical Exam Comments:: General: Robert is a 66-year-old man in no acute distress. Oropharynx: He has an NG tube in place in his nasopharynx. Oropharynx is otherwise clear Neck: Supple, no lymphadenopathy Heart: Regular rate and rhythm, no murmurs Lungs: Clear to auscultation throughout Abdomen: Firm and somewhat distended. I do not hear any bowel sounds in the upper quadrants, but hypoactive bowel sounds in the lower quadrants. CT scan from the ER reviewed, it does not show any sign of obstruction or free air, but does show the severe ileus - Patient Data Lab Results Last 24 hrs: Laboratory Results - last 24 hr 10/29/21 10/29/21 10/29/21 Range/Units 10:54 10:54 10:54 WBC 11.7 H (5.0-10.0) 10^3/uL RBC 4.28 L (4.6-6.2) 10^6/uL Hgb 12.4 L (14.0-18.0) g/dL Hct 35.7 L (40.0-54.0) % MCV 83.4 (80-100) fL MCH 29.0 (27.0-34.0) pg MCHC 34.7 (33.0-35.0) g/dL Plt Count 427 D (150-450) 10^3/uL Neut % (Auto) 77.2 H (42.2-75.2) % Lymph % (Auto) 10.1 L (20.5-50.1) % [place] % (Auto) 11.7 H (2-8) % Eos % (Auto) 0.7 L (1.0-3.0) % Baso % (Auto) 0.3 (0.0-1.0) % Sodium 128 L (136-145) mmol/L Potassium 3.7 (3.5-5.1) mmol/L Chloride 86 L (98-107) mmol/L Carbon Dioxide 31 (21-32) mmol/L Anion Gap 14.7 H (7-13) mEq/L BUN 18 (7-18) mg/dL Creatinine 1.25 (0.70-1.30) mg/dL Est Cr Clr Drug Dosing TNP Estimated GFR (MDRD) 58 BUN/Creatinine Ratio 14.4 (No establ ref range) Glucose 180 H (70-99) mg/dL Lactic Acid 1.5 (0.4-2.0) mmol/L Calcium 9.5 (8.5-10.1) mg/dL Magnesium 2.0 (1.8-2.4) mg/dL Total Bilirubin 0.5 (0.2-1.0) mg/dL AST 16 (15-37) U/L ALT 24 (16-63) U/L Alkaline Phosphatase 114 (46-116) U/L C-Reactive Protein 2.5 H (0.0-0.9) mg/dL Total Protein 8.2 (6.4-8.2) g/dL Albumin 4.1 (3.4-5.0) g/dL Globulin 4.1 Albumin/Globulin Ratio 1.0 Urine Color (YELLOW) Urine Appearance (CLEAR) Urine pH (5.0-9.0) Ur Specific [place] (1.005-1.030) Urine Protein (NEGATIVE) Urine Glucose (UA) (NEGATIVE) Urine Ketones (NEGATIVE) Urine Occult Blood (NEGATIVE) Urine Nitrite (NEGATIVE) Urine Bilirubin (NEGATIVE) Urine Urobilinogen (0.2-1.0) mg/dL Ur Leukocyte Esterase (NEGATIVE) SARS-CoV-2 RNA (BEN) (NEGATIVE) 07/23/21 07/23/21 07/24/21 Range/Units 19:10 19:22 05:50 WBC 11.5 H (5.0-10.0) 10^3/uL RBC 4.01 L (4.6-6.2) 10^6/uL Hgb 11.7 L (14.0-18.0) g/dL Hct 33.9 L (40.0-54.0) % MCV 84.5 (80-100) fL MCH 29.2 (27.0-34.0) pg MCHC 34.5 (33.0-35.0) g/dL Plt Count 279 D (150-450) 10^3/uL Neut % (Auto) 72.3 (42.2-75.2) % Lymph % (Auto) 11.0 L (20.5-50.1) % [place] % (Auto) 15.8 H (2-8) % Eos % (Auto) 0.6 L (1.0-3.0) % Baso % (Auto) 0.3 (0.0-1.0) % Sodium (136-145) mmol/L Potassium (3.5-5.1) mmol/L Chloride (98-107) mmol/L Carbon Dioxide (21-32) mmol/L Anion Gap (7-13) mEq/L BUN (7-18) mg/dL Creatinine (0.70-1.30) mg/dL Est Cr Clr Drug Dosing Estimated GFR (MDRD) BUN/Creatinine Ratio (No establ ref range) Glucose (70-99) mg/dL Lactic Acid (0.4-2.0) mmol/L Calcium (8.5-10.1) mg/dL Magnesium (1.8-2.4) mg/dL Total Bilirubin (0.2-1.0) mg/dL AST (15-37) U/L ALT (16-63) U/L Alkaline Phosphatase (46-116) U/L C-Reactive Protein (0.0-0.9) mg/dL Total Protein (6.4-8.2) g/dL Albumin (3.4-5.0) g/dL Globulin Albumin/Globulin Ratio Urine Color Yellow (YELLOW) Urine Appearance Clear (CLEAR) Urine pH 6.0 (5.0-9.0) Ur Specific [place] 1.020 (1.005-1.030) Urine Protein Negative (NEGATIVE) Urine Glucose (UA) Negative (NEGATIVE) Urine Ketones Trace H (NEGATIVE) Urine Occult Blood Negative (NEGATIVE) Urine Nitrite Negative (NEGATIVE) Urine Bilirubin Negative (NEGATIVE) Urine Urobilinogen 0.2 (0.2-1.0) mg/dL Ur Leukocyte Esterase Negative (NEGATIVE) SARS-CoV-2 RNA (BEN) Negative (NEGATIVE) Result Diagrams: 07/24/21 05:50 07/23/21 10:54 - Problem List (1) Adynamic ileus SNOMED Code(s): 86413339 ICD Code: K56.0 - PARALYTIC ILEUS Status: Acute Current Visit: Yes (2) Urinary retention due to benign prostatic hyperplasia SNOMED Code(s): 265903018, 411001644873794 ICD Code: N40.1 - BENIGN PROSTATIC HYPERPLASIA WITH LOWER URINARY TRACT SYMP; R33.8 - OTHER RETENTION OF URINE Status: Acute Current Visit: Yes (3) Benign prostate hyperplasia SNOMED Code(s): 503400902 ICD Code: N40.0 - BENIGN PROSTATIC HYPERPLASIA WITHOUT LOWER URINRY TRACT SYMP Status: Acute Current Visit: Yes Problem List Initiated/Reviewed/Updated: Yes Orders Last 24hrs: Active Orders 24 hr Category Date Time Status Admission Diagnosis [ADT] Stat ADT 07/23/21 19:20 Ordered Admission Status [Patient Status] [ADT] Routine ADT 07/23/21 19:20 Active Gastrointestinal Tube Mgmt [RC] 08,20 Care 07/23/21 17:26 Active Height and Weight [RC] 0600 Care 07/23/21 20:04 Active Intake and Output [RC] QSHIFT Care 07/23/21 20:05 Active Oxygen Therapy [RC] PRN Care 07/23/21 20:04 Active Up ad Jyoti [RC] ASDIRECTED Care 07/23/21 20:04 Active VTE/DVT Education [RC] 09, Care 07/23/21 20:04 Active Vital Signs [RC] 00,04,08,12,16,20 Care 07/23/21 20:04 Active Nothing per Oral Now Diet [DIET] Diet 07/24/21 Breakfast Active COMPREHENSIVE METABOLIC PN,CMP [CHEM] AM Lab 07/24/21 05:50 Received CORONAVIRUS COVID-19 BEN [MOLEC] Stat Lab 07/23/21 19:22 Ordered Ampicillin/Sulbactam Na [Unasyn] 3 gm Med 07/23/21 20:15 Active Sodium Chloride 0.9% [Normal Saline AdvBag] 100 ml IV Q6HR HYDROmorphone [Dilaudid] Med 07/23/21 20:04 Active 0.5 mg IVPUSH Q1H PRN Lactated Ringers [Ringers, Lactated] 1,000 ml Med 07/23/21 20:15 Active IV ASDIRECTED Ondansetron [Zofran] Med 07/23/21 20:04 Active 4 mg IVPUSH Q6H PRN Patient's Own Medication [Ptom] Med 07/23/21 23:05 Active 1 each PO Q2H PRN NG [Nasogastric Orogastric Tube Insertion] [OM.PC] Oth 07/23/21 17:26 Ordered Routine Resuscitation Status Routine Resus Stat 07/23/21 20:04 Ordered Medication Orders Hydromorphone HCl (Hydromorphone 0.5 Mg/0.5 Ml Syringe) 0.5 mg IVPUSH Q1H PRN PRN Reason: Pain (severe 7-10) Lactated Ringer's (Ringers, Lactated) 1,000 mls @ 125 mls/hr IV ASDIRECTED [facility] Last Admin: 07/23/21 22:45 Dose: 125 mls/hr Documented by: CLEMENTE Ampicillin Sodium/Sulbactam (Sodium 3 gm/ Sodium Chloride) 100 mls @ 100 mls/hr IV Q6HR [facility] Last Admin: 07/24/21 02:25 Dose: 100 mls/hr Documented by: Infusion: 07/23/21 22:36 Dose: 100 mls/hr Documented by: Admin: 07/23/21 21:36 Dose: 100 mls/hr Documented by: CLEMENTE Ondansetron HCl (Ondansetron 4 Mg/2 Ml Sdv) 4 mg IVPUSH Q6H PRN PRN Reason: Nausea/Vomiting Last Admin: 07/23/21 23:01 Dose: 4 mg Documented by: CLEMENTE Patient's Own MedicationHobbs's Cough Drops 1 each PO Q2H PRN PRN Reason: Cough Assessment/Plan Comment:: Assessment/Plan: 1. 66-year-old man with severe ileus -ER has already placed NG tube, I agree with this plan, we will have it on low intermittent suction throughout the night -Lactated Ringer's, 125 mL/h IV maintenance fluids -We will see how he does in the morning, he may need bowel evacuation from below 2. Bilateral perinephric stranding seen on CT scan: As reported in the history, he has numerous symptoms of fairly severe BPH. I am concerned that he has been having significant urinary retention to the point where his kidneys may be affected. The differential would also however include intrinsic kidney disease. We will inquire with lab whether we can get a urine sodium or creatinine, as a fractional excretion of sodium might be helpful in characterizing this for us. Once he is better clinically from his ileus, we may need to either repeat his CT, or possibly get an ultrasound of the kidneys
[2021-07-24] MEDS: Lactated Ringers 1,000 ML IV SCH ×2 (09:34→19:22)
[2021-07-24] MEDS ORDERED: Benzocaine/Cetylpyridinium/Menthol Lozenge MUCMEM PRN (12:02)
[2021-07-24] MEDS ORDERED: LORazepam 0.5 MG Tab PO PRN (12:04)
--- NOTE | 2021-07-24 12:42 | PCM.PN ---
- General Info Date of Service: 07/24/21 Admission Dx/Problem (Free Text): Admission Diagnosis/Problem Admission Diagnosis/Problem Ileus Subjective Update: recently developed, fever, nausea, stuffy nose diagnosed with influenza started on Tamiflu presented with abdominal distention, nausea on ct ileus was noted overnight has remained on ng suction - output about 800 cc brown liquid started to have BMs this morning feeling better, the distention is improved, moderate, present for days, has associated mod abdominal pain tolerating NG tube Functional Status: Reports: Pain Controlled - Review of Systems General: Reports: Weakness. Denies: Fever Pulmonary: Denies: Shortness of Breath Cardiovascular: Reports: Edema. Denies: Chest Pain Genitourinary: Denies: Dysuria Neurological: Denies: Confusion - Patient Data Vitals - Most Recent: Last Vital Signs Temp 97.0 F 07/24/21 12:00 Pulse 111 H 07/24/21 12:00 Resp 18 07/24/21 12:00 BP 143/85 H 07/24/21 12:00 Pulse Ox 98 07/24/21 12:00 Weight - Most Recent: 210 lb 12.8 oz Lab Results Last 24 Hours: Laboratory Results - last 24 hr 07/23/21 07/23/21 07/24/21 Range/Units 19:10 19:22 05:50 WBC 11.5 H (5.0-10.0) 10^3/uL RBC 4.01 L (4.6-6.2) 10^6/uL Hgb 11.7 L (14.0-18.0) g/dL Hct 33.9 L (40.0-54.0) % MCV 84.5 (80-100) fL MCH 29.2 (27.0-34.0) pg MCHC 34.5 (33.0-35.0) g/dL Plt Count 279 D (150-450) 10^3/uL Neut % (Auto) 72.3 (42.2-75.2) % Lymph % (Auto) 11.0 L (20.5-50.1) % [place] % (Auto) 15.8 H (2-8) % Eos % (Auto) 0.6 L (1.0-3.0) % Baso % (Auto) 0.3 (0.0-1.0) % Sodium (136-145) mmol/L Potassium (3.5-5.1) mmol/L Chloride (98-107) mmol/L Carbon Dioxide (21-32) mmol/L Anion Gap (7-13) mEq/L BUN (7-18) mg/dL Creatinine (0.70-1.30) mg/dL Est Cr Clr Drug Dosing mL/min Estimated GFR (MDRD) BUN/Creatinine Ratio (No establ ref range) Glucose (70-99) mg/dL Calcium (8.5-10.1) mg/dL Total Bilirubin (0.2-1.0) mg/dL AST (15-37) U/L ALT (16-63) U/L Alkaline Phosphatase (46-116) U/L Total Protein (6.4-8.2) g/dL Albumin (3.4-5.0) g/dL Globulin Albumin/Globulin Ratio Urine Color Yellow (YELLOW) Urine Appearance Clear (CLEAR) Urine pH 6.0 (5.0-9.0) Ur Specific [place] 1.020 (1.005-1.030) Urine Protein Negative (NEGATIVE) Urine Glucose (UA) Negative (NEGATIVE) Urine Ketones Trace H (NEGATIVE) Urine Occult Blood Negative (NEGATIVE) Urine Nitrite Negative (NEGATIVE) Urine Bilirubin Negative (NEGATIVE) Urine Urobilinogen 0.2 (0.2-1.0) mg/dL Ur Leukocyte Esterase Negative (NEGATIVE) SARS-CoV-2 RNA (BEN) Negative (NEGATIVE) 07/24/21 Range/Units 05:50 WBC (5.0-10.0) 10^3/uL RBC (4.6-6.2) 10^6/uL Hgb (14.0-18.0) g/dL Hct (40.0-54.0) % MCV (80-100) fL MCH (27.0-34.0) pg MCHC (33.0-35.0) g/dL Plt Count (150-450) 10^3/uL Neut % (Auto) (42.2-75.2) % Lymph % (Auto) (20.5-50.1) % [place] % (Auto) (2-8) % Eos % (Auto) (1.0-3.0) % Baso % (Auto) (0.0-1.0) % Sodium 132 L (136-145) mmol/L Potassium 3.3 L (3.5-5.1) mmol/L Chloride 90 L (98-107) mmol/L Carbon Dioxide 31 (21-32) mmol/L Anion Gap 14.3 H (7-13) mEq/L BUN 15 (7-18) mg/dL Creatinine 1.05 (0.70-1.30) mg/dL Est Cr Clr Drug Dosing 70.49 mL/min Estimated GFR (MDRD) > 60 BUN/Creatinine Ratio 14.3 (No establ ref range) Glucose 142 H (70-99) mg/dL Calcium 8.7 (8.5-10.1) mg/dL Total Bilirubin 0.5 (0.2-1.0) mg/dL AST 15 (15-37) U/L ALT 24 (16-63) U/L Alkaline Phosphatase 100 (46-116) U/L Total Protein 7.3 (6.4-8.2) g/dL Albumin 3.6 (3.4-5.0) g/dL Globulin 3.7 Albumin/Globulin Ratio 1.0 Urine Color (YELLOW) Urine Appearance (CLEAR) Urine pH (5.0-9.0) Ur Specific [place] (1.005-1.030) Urine Protein (NEGATIVE) Urine Glucose (UA) (NEGATIVE) Urine Ketones (NEGATIVE) Urine Occult Blood (NEGATIVE) Urine Nitrite (NEGATIVE) Urine Bilirubin (NEGATIVE) Urine Urobilinogen (0.2-1.0) mg/dL Ur Leukocyte Esterase (NEGATIVE) SARS-CoV-2 RNA (BEN) (NEGATIVE) Med Orders - Current: Current Medications Benzocaine/Menthol (Benzocaine/Cetylpyridinium/Menthol Lozenge) 1 lozenge MUCMEM Q2H PRN PRN Reason: Sore Throat Hydromorphone HCl (Hydromorphone 0.5 Mg/0.5 Ml Syringe) 0.5 mg IVPUSH Q1H PRN PRN Reason: Pain (severe 7-10) Lactated Ringer's (Ringers, Lactated) 1,000 mls @ 125 mls/hr IV ASDIRECTED [facility] Last Admin: 07/24/21 09:34 Dose: 125 mls/hr Documented by: Ampicillin Sodium/Sulbactam (Sodium 3 gm/ Sodium Chloride) 100 mls @ 100 mls/hr IV Q6HR [facility]EL Last Admin: 07/24/21 07:27 Dose: 100 mls/hr Documented by: Lorazepam (Lorazepam 0.5 Mg Tab) 0.5 mg PO Q8H PRN PRN Reason: Anxiety Ondansetron HCl (Ondansetron 4 Mg/2 Ml Sdv) 4 mg IVPUSH Q6H PRN PRN Reason: Nausea/Vomiting Last Admin: 07/23/21 23:01 Dose: 4 mg Documented by: Patient's Own MedicationHobbs's Cough Drops 1 each PO Q2H PRN PRN Reason: Cough Discontinued Medications Benzocaine (Benzocaine 20% Oral [place] 59.2 Ml Canister) 1 ml MUCMEM ONETIME ONE Stop: 07/23/21 17:29 Last Admin: 07/23/21 19:33 Dose: Not Given Documented by: Benzocaine (Benzocaine 20% Topical [place] Ud) Confirm Administered Dose 1 each .ROUTE .STK-MED ONE Stop: 07/23/21 17:39 Benzocaine (Benzocaine 20% Topical [place] Ud) 1 each MUCMEM ONETIME ONE Stop: 07/23/21 19:46 Last Admin: 07/23/21 19:33 Dose: 1 each Documented by: Sodium Chloride (Normal Saline) 1,000 mls @ 999 mls/hr IV .BOLUS ONE Stop: 07/23/21 12:25 Last Admin: 07/23/21 11:30 Dose: 999 mls/hr Documented by: Sodium Chloride (Normal Saline) 1,000 mls @ 999 mls/hr IV .BOLUS ONE Stop: 07/23/21 15:49 Last Admin: 07/23/21 14:56 Dose: 999 mls/hr Documented by: Ceftriaxone Sodium 2 gm/ (Sodium Chloride) 100 mls @ 200 mls/hr IV ONETIME ONE Stop: 07/23/21 19:50 Last Admin: 07/23/21 22:13 Dose: Not Given Documented by: Iopamidol (Iopamidol 612 Mg/Ml 100 Ml Bottle) 100 ml IVPUSH ONETIME ONE Stop: 07/23/21 17:28 Last Admin: 07/23/21 17:59 Dose: 100 ml Documented by: Magnesium Citrate (Magnesium Citrate Solution 296 Ml Bottle) 296 ml PO ONETIME ONE Stop: 07/23/21 11:55 Last Admin: 07/23/21 12:00 Dose: 296 ml Documented by: Ondansetron HCl (Ondansetron 4 Mg/2 Ml Sdv) 4 mg IVPUSH ONETIME ONE Stop: 07/23/21 11:54 Last Admin: 07/23/21 11:59 Dose: 4 mg Documented by: - Exam General: Alert, Oriented HEENT: Other (NGtube on suction ) Neck: Supple Lungs: Clear to Auscultation, Normal Respiratory Effort Cardiovascular: Regular Rate, Regular Rhythm GI/Abdominal Exam: Distended (mildly ), Other (+ BS). No: Rigid, Rebound, Tender Extremities: Pedal Edema Neurological: No New Focal Deficit Psy/Mental Status: Alert, Normal Affect, Normal Mood - Patient Data Lab Results Last 24 hrs: Laboratory Results - last 24 hr 07/23/21 07/23/21 07/24/21 Range/Units 19:10 19:22 05:50 WBC 11.5 H (5.0-10.0) 10^3/uL RBC 4.01 L (4.6-6.2) 10^6/uL Hgb 11.7 L (14.0-18.0) g/dL Hct 33.9 L (40.0-54.0) % MCV 84.5 (80-100) fL MCH 29.2 (27.0-34.0) pg MCHC 34.5 (33.0-35.0) g/dL Plt Count 279 D (150-450) 10^3/uL Neut % (Auto) 72.3 (42.2-75.2) % Lymph % (Auto) 11.0 L (20.5-50.1) % [place] % (Auto) 15.8 H (2-8) % Eos % (Auto) 0.6 L (1.0-3.0) % Baso % (Auto) 0.3 (0.0-1.0) % Sodium (136-145) mmol/L Potassium (3.5-5.1) mmol/L Chloride (98-107) mmol/L Carbon Dioxide (21-32) mmol/L Anion Gap (7-13) mEq/L BUN (7-18) mg/dL Creatinine (0.70-1.30) mg/dL Est Cr Clr Drug Dosing mL/min Estimated GFR (MDRD) BUN/Creatinine Ratio (No establ ref range) Glucose (70-99) mg/dL Calcium (8.5-10.1) mg/dL Total Bilirubin (0.2-1.0) mg/dL AST (15-37) U/L ALT (16-63) U/L Alkaline Phosphatase (46-116) U/L Total Protein (6.4-8.2) g/dL Albumin (3.4-5.0) g/dL Globulin Albumin/Globulin Ratio Urine Color Yellow (YELLOW) Urine Appearance Clear (CLEAR) Urine pH 6.0 (5.0-9.0) Ur Specific [place] 1.020 (1.005-1.030) Urine Protein Negative (NEGATIVE) Urine Glucose (UA) Negative (NEGATIVE) Urine Ketones Trace H (NEGATIVE) Urine Occult Blood Negative (NEGATIVE) Urine Nitrite Negative (NEGATIVE) Urine Bilirubin Negative (NEGATIVE) Urine Urobilinogen 0.2 (0.2-1.0) mg/dL Ur Leukocyte Esterase Negative (NEGATIVE) SARS-CoV-2 RNA (BEN) Negative (NEGATIVE) 07/24/21 Range/Units 05:50 WBC (5.0-10.0) 10^3/uL RBC (4.6-6.2) 10^6/uL Hgb (14.0-18.0) g/dL Hct (40.0-54.0) % MCV (80-100) fL MCH (27.0-34.0) pg MCHC (33.0-35.0) g/dL Plt Count (150-450) 10^3/uL Neut % (Auto) (42.2-75.2) % Lymph % (Auto) (20.5-50.1) % [place] % (Auto) (2-8) % Eos % (Auto) (1.0-3.0) % Baso % (Auto) (0.0-1.0) % Sodium 132 L (136-145) mmol/L Potassium 3.3 L (3.5-5.1) mmol/L Chloride 90 L (98-107) mmol/L Carbon Dioxide 31 (21-32) mmol/L Anion Gap 14.3 H (7-13) mEq/L BUN 15 (7-18) mg/dL Creatinine 1.05 (0.70-1.30) mg/dL Est Cr Clr Drug Dosing 70.49 mL/min Estimated GFR (MDRD) > 60 BUN/Creatinine Ratio 14.3 (No establ ref range) Glucose 142 H (70-99) mg/dL Calcium 8.7 (8.5-10.1) mg/dL Total Bilirubin 0.5 (0.2-1.0) mg/dL AST 15 (15-37) U/L ALT 24 (16-63) U/L Alkaline Phosphatase 100 (46-116) U/L Total Protein 7.3 (6.4-8.2) g/dL Albumin 3.6 (3.4-5.0) g/dL Globulin 3.7 Albumin/Globulin Ratio 1.0 Urine Color (YELLOW) Urine Appearance (CLEAR) Urine pH (5.0-9.0) Ur Specific [place] (1.005-1.030) Urine Protein (NEGATIVE) Urine Glucose (UA) (NEGATIVE) Urine Ketones (NEGATIVE) Urine Occult Blood (NEGATIVE) Urine Nitrite (NEGATIVE) Urine Bilirubin (NEGATIVE) Urine Urobilinogen (0.2-1.0) mg/dL Ur Leukocyte Esterase (NEGATIVE) SARS-CoV-2 RNA (BEN) (NEGATIVE) Result Diagrams: 07/24/21 05:50 07/24/21 05:50 Sepsis Event Note - Evaluation Sepsis Screening Result: Sepsis Risk - Focused Exam Vital Signs: Vital Signs Temp Pulse Resp BP Pulse Ox 07/24/21 12:00 97.0 F 111 H 18 143/85 H 98 07/24/21 07:45 97.0 F 105 H 18 168/95 H 98 07/24/21 04:00 98.8 F 103 H 16 142/91 H 94 L - Problem List & Annotations (1) Adynamic ileus SNOMED Code(s): 87724537 Code(s): K56.0 - PARALYTIC ILEUS Status: Acute Current Visit: Yes (2) Hyperglycemia due to diabetes mellitus SNOMED Code(s): 723824880, 946933418 Code(s): E11.65 - TYPE 2 DIABETES MELLITUS WITH HYPERGLYCEMIA Status: Acute Current Visit: No (3) Hypokalemia SNOMED Code(s): 70266834 Code(s): E87.6 - HYPOKALEMIA Status: Acute Current Visit: No (4) Hyponatremia SNOMED Code(s): 42321326 Code(s): E87.1 - HYPO-OSMOLALITY AND HYPONATREMIA Status: Acute Current Visit: No (5) Influenza B SNOMED Code(s): 83025322 Code(s): J10.1 - FLU DUE TO OTH IDENT INFLUENZA VIRUS W OTH RESP MANIFEST Status: Acute Current Visit: No - Problem List Review Problem List Initiated/Reviewed/Updated: Yes - My Orders Last 24 Hours: My Active Orders 07/24/21 12:02 Benzocaine/Cetylpyrd/Menthol [Cepacol Sore Throat] 1 lozenge MUCMEM Q2H PRN 07/24/21 12:04 LORazepam [Ativan] 0.5 mg PO Q8H PRN - Plan Plan:: Assessment/Plan: 1. 66-year-old man with h/o dm, htn, recently dx. with influenza, has been on tamiflu presented with severe ileus appears improving, less distention, + BMs -maintain NG tube - if improving will clamp as a trial - npo for now -Lactated Ringer's, 125 mL/h IV maintenance fluids -pain control: add PO option of Oxycodone for moderate pain, IV dialudid for severe pain 2. Bilateral perinephric stranding seen on CT scan ua is negative for uti - stop IV Abx no significant CECELIA - check for postvoid residuals 3. HTN resume lisinopril, metoprolol 4. Dyslipidemia hold statin until back on diet 5. hypokalemia will replace with IV KCL 6. Hyponatremia cont hydration 7. DVT prophylaxis start sq heparin d/w dr. Mirza
[2021-07-24] MEDS ORDERED: Potassium Chloride 10 MEQ Tab.ER PO ONE (12:45)
[2021-07-24] MEDS: HYDROmorphone 0.5 MG/0.5 ML Syringe IVPUSH PRN ×2 (13:04→22:39)
[2021-07-24] MEDS ORDERED: 50% Dextrose in Water 50 ML Syringe IVPUSH PRN (13:07)
[2021-07-24] MEDS: Metoprolol Tartrate 25 MG Tab PO SCH ×2 (14:00→20:44)
[2021-07-24] MEDS: Lisinopril 20 MG Tab PO SCH (14:01)
[2021-07-24] MEDS: Potassium Chloride 10 MEQ in Premix Bag 1 BAG IV SCH ×5 (14:01→18:02)
[2021-07-24] MEDS: Heparin Sodium 5,000 Units/ML Vial SUBCUT SCH ×3 (14:05→22:39)
[2021-07-24] MEDS: Insulin Lispro 100 Units/ML 3 ML Vial SUBCUT SCH ×2 (17:50→20:43)
[2021-07-25] MEDS: Lactated Ringers 1,000 ML IV SCH (02:35)
[2021-07-25] MEDS: Heparin Sodium 5,000 Units/ML Vial SUBCUT SCH ×2 (06:48→17:29)
[2021-07-25 07:07] LABS: ANION GAP 12.8 mEq/L (7-13); CHLORIDE,CL 94 mmol/L (98-107); SODIUM,NA 134 mmol/L (136-145)
[2021-07-25 08:08] VITALS: BP 145/74
[2021-07-25] MEDS: Metoprolol Tartrate 25 MG Tab PO SCH (10:45)
[2021-07-25] MEDS: Lisinopril 20 MG Tab PO SCH (10:45)
[2021-07-25] MEDS: Insulin Lispro 100 Units/ML 3 ML Vial SUBCUT SCH ×2 (10:47→17:28)
[2021-07-25 11:45] VITALS: PULSE 102
--- NOTE | 2021-07-25 13:51 | PCM.DCSUM1 ---
Discharge Summary - Hospital Course Free Text/Narrative:: 1. 66-year-old man with h/o dm, htn, recently dx. with influenza, has been on tamiflu presented with severe ileus, abdominal pain and distention symptoms improved with NG tube, constipation management by the time of discharge tolerating diet 2. Bilateral perinephric stranding seen on CT scan with leukocytosis ua is negative for uti - no significant CECELIA - no high postvoid residuals will ask patient for short term f/up hold ABx now 3. HTN resume lisinopril, metoprolol, chlorthalidone 4. Dyslipidemia resume statin Diagnosis: Stroke: No - Discharge Data Discharge Date: 07/25/21 Discharge Disposition: Home, Self-Care 01 Condition: Good - Referral to Home Health Primary Care Physician: PCP None - Discharge Diagnosis/Problem(s) (1) Adynamic ileus SNOMED Code(s): 00685940 ICD Code: K56.0 - PARALYTIC ILEUS Status: Acute Current Visit: Yes (2) Hyperglycemia due to diabetes mellitus SNOMED Code(s): 413006170, 404582260 ICD Code: E11.65 - TYPE 2 DIABETES MELLITUS WITH HYPERGLYCEMIA Status: Acute Current Visit: No (3) Hypokalemia SNOMED Code(s): 72306938 ICD Code: E87.6 - HYPOKALEMIA Status: Acute Current Visit: No (4) Hyponatremia SNOMED Code(s): 70362316 ICD Code: E87.1 - HYPO-OSMOLALITY AND HYPONATREMIA Status: Acute Current Visit: No (5) Influenza B SNOMED Code(s): 32334258 ICD Code: J10.1 - FLU DUE TO OTH IDENT INFLUENZA VIRUS W OTH RESP MANIFEST Status: Acute Current Visit: No - Patient Instructions Diet: Diabetic Diet Activity: As Tolerated - Discharge Plan *PRESCRIPTION DRUG MONITORING PROGRAM REVIEWED*: Not Applicable *COPY OF PRESCRIPTION DRUG MONITORING REPORT IN PATIENT STUART: Not Applicable Home Medications: Home Meds Aspirin/Calcium Carbonate/Mag [Aspirin Buffered 325 mg Tab] 325 mg PO DAILY 12/16/15 [History] Chlorthalidone 25 mg PO DAILY 12/16/15 [History] Lisinopril 10 mg PO DAILY 12/16/15 [History] Simvastatin 30 mg PO BEDTIME 12/16/15 [History] metFORMIN [Glucophage] 1,000 mg PO BID 12/16/15 [History] Metoprolol Tartrate 50 mg PO BID 07/24/21 [History] Oxygen Therapy Mode: Room Air Patient Handouts: Ileus Referrals: PCP,None [Primary Care Provider] - (in 2-3 days with cbc, bmp re: ileus, influenza) - Discharge Summary/Plan Comment DC Time >30 min.: No Total # of Minutes for Discharge Time: 20 - General Info Date of Service: 07/25/21 Subjective Update: feeling wel ng tube removed tolerating diet abd not tender Functional Status: Reports: Pain Controlled, Tolerating Diet, Ambulating - Review of Systems General: Denies: Fever Pulmonary: Denies: Shortness of Breath Cardiovascular: Denies: Chest Pain Gastrointestinal: Denies: Abdominal Pain Neurological: Denies: Confusion - Patient Data Vitals - Most Recent: Last Vital Signs Temp 96.3 F L 07/25/21 11:44 Pulse 102 H 07/25/21 11:44 Resp 20 07/25/21 11:44 BP 145/74 H 07/25/21 10:45 Pulse Ox 99 07/25/21 11:44 Weight - Most Recent: 210 lb 12.8 oz I&O - Last 24 hours: Intake & Output 07/24/21 07/25/21 07/25/21 22:59 06:59 14:59 Intake Total 300 Balance 300 Lab Results - Last 24 hrs: Laboratory Results - last 24 hr 07/24/21 07/24/21 07/25/21 Range/Units 17:07 20:39 05:45 WBC 13.1 H (5.0-10.0) 10^3/uL RBC 3.93 L (4.6-6.2) 10^6/uL Hgb 11.4 L (14.0-18.0) g/dL Hct 33.9 L (40.0-54.0) % MCV 86.3 (80-100) fL MCH 29.0 (27.0-34.0) pg MCHC 33.6 (33.0-35.0) g/dL Plt Count 375 D (150-450) 10^3/uL Neut % (Auto) 74.5 (42.2-75.2) % Lymph % (Auto) 11.2 L (20.5-50.1) % [place] % (Auto) 13.0 H (2-8) % Eos % (Auto) 1.0 (1.0-3.0) % Baso % (Auto) 0.3 (0.0-1.0) % Add Manual Diff Yes Neutrophils % (Manual) 74 (42-75) % Band Neutrophils % 2 % Lymphocytes % (Manual) 11 L (20-50) % Monocytes % (Manual) 13 H (2-8) % Sodium (136-145) mmol/L Potassium (3.5-5.1) mmol/L Chloride (98-107) mmol/L Carbon Dioxide (21-32) mmol/L Anion Gap (7-13) mEq/L BUN (7-18) mg/dL Creatinine (0.70-1.30) mg/dL Est Cr Clr Drug Dosing mL/min Estimated GFR (MDRD) Glucose (70-99) mg/dL POC Glucose 144 H 143 H (70-99) mg/dL Calcium (8.5-10.1) mg/dL 07/25/21 07/25/21 07/25/21 Range/Units 05:45 07:46 11:15 WBC (5.0-10.0) 10^3/uL RBC (4.6-6.2) 10^6/uL Hgb (14.0-18.0) g/dL Hct (40.0-54.0) % MCV (80-100) fL MCH (27.0-34.0) pg MCHC (33.0-35.0) g/dL Plt Count (150-450) 10^3/uL Neut % (Auto) (42.2-75.2) % Lymph % (Auto) (20.5-50.1) % [place] % (Auto) (2-8) % Eos % (Auto) (1.0-3.0) % Baso % (Auto) (0.0-1.0) % Add Manual Diff Neutrophils % (Manual) (42-75) % Band Neutrophils % % Lymphocytes % (Manual) (20-50) % Monocytes % (Manual) (2-8) % Sodium 134 L (136-145) mmol/L Potassium 3.8 (3.5-5.1) mmol/L Chloride 94 L (98-107) mmol/L Carbon Dioxide 31 (21-32) mmol/L Anion Gap 12.8 (7-13) mEq/L BUN 11 (7-18) mg/dL Creatinine 0.94 (0.70-1.30) mg/dL Est Cr Clr Drug Dosing 78.74 mL/min Estimated GFR (MDRD) > 60 Glucose 122 H (70-99) mg/dL POC Glucose 131 H 204 H (70-99) mg/dL Calcium 8.9 (8.5-10.1) mg/dL Med Orders - Current: Current Medications Benzocaine/Menthol (Benzocaine/Cetylpyridinium/Menthol Lozenge) 1 lozenge MUCMEM Q2H PRN PRN Reason: Sore Throat Last Admin: 07/24/21 13:03 Dose: 1 lozenge Documented by: Dextrose/Water (50% Dextrose In Water 50 Ml Syringe) 25 ml IVPUSH ASDIRECTED PRN PRN Reason: Hypoglycemia BS<70 Heparin Sodium (Porcine) (Heparin Sodium 5,000 Units/Ml Vial) 5,000 units SUBCUT Q8HR [facility] Last Admin: 07/25/21 06:48 Dose: Not Given Documented by: Hydromorphone HCl (Hydromorphone 0.5 Mg/0.5 Ml Syringe) 0.5 mg IVPUSH Q1H PRN PRN Reason: Pain (severe 7-10) Last Admin: 07/24/21 22:39 Dose: 0.5 mg Documented by: Lactated Ringer's (Ringers, Lactated) 1,000 mls @ 125 mls/hr IV ASDIRECTED [facility] Last Admin: 07/25/21 02:35 Dose: 125 mls/hr Documented by: Insulin Human Lispro (Insulin Lispro 100 Units/Ml 3 Ml Vial) 0 unit SUBCUT WITHMEALSANDBED [facility]; Protocol Last Admin: 07/25/21 10:47 Dose: Not Given Documented by: Lisinopril (Lisinopril 20 Mg Tab) 20 mg PO DAILY [facility] Last Admin: 07/25/21 10:45 Dose: 20 mg Documented by: Lorazepam (Lorazepam 0.5 Mg Tab) 0.5 mg PO Q8H PRN PRN Reason: Anxiety Metoprolol Tartrate (Metoprolol Tartrate 25 Mg Tab) 25 mg PO BID [facility] Last Admin: 07/25/21 10:45 Dose: 25 mg Documented by: Ondansetron HCl (Ondansetron 4 Mg/2 Ml Sdv) 4 mg IVPUSH Q6H PRN PRN Reason: Nausea/Vomiting Last Admin: 07/23/21 23:01 Dose: 4 mg Documented by: Patient's Own MedicationHobbs's Cough Drops 1 each PO Q2H PRN PRN Reason: Cough Discontinued Medications Benzocaine (Benzocaine 20% Oral [place] 59.2 Ml Canister) 1 ml MUCMEM ONETIME ONE Stop: 07/23/21 17:29 Last Admin: 07/23/21 19:33 Dose: Not Given Documented by: Benzocaine (Benzocaine 20% Topical [place] Ud) Confirm Administered Dose 1 each .ROUTE .STK-MED ONE Stop: 07/23/21 17:39 Benzocaine (Benzocaine 20% Topical [place] Ud) 1 each MUCMEM ONETIME ONE Stop: 07/23/21 19:46 Last Admin: 07/23/21 19:33 Dose: 1 each Documented by: Sodium Chloride (Normal Saline) 1,000 mls @ 999 mls/hr IV .BOLUS ONE Stop: 07/23/21 12:25 Last Admin: 07/23/21 11:30 Dose: 999 mls/hr Documented by: Sodium Chloride (Normal Saline) 1,000 mls @ 999 mls/hr IV .BOLUS ONE Stop: 07/23/21 15:49 Last Admin: 07/23/21 14:56 Dose: 999 mls/hr Documented by: Ceftriaxone Sodium 2 gm/ (Sodium Chloride) 100 mls @ 200 mls/hr IV ONETIME ONE Stop: 07/23/21 19:50 Last Admin: 07/23/21 22:13 Dose: Not Given Documented by: Ampicillin Sodium/Sulbactam (Sodium 3 gm/ Sodium Chloride) 100 mls @ 100 mls/hr IV Q6HR MIGUEL ÁNGEL Last Admin: 07/24/21 12:50 Dose: 100 mls/hr Documented by: Potassium Chloride 10 meq/ (Premix) 100 mls @ 100 mls/hr IV Q2H MIGUEL ÁNGEL Stop: 07/24/21 19:59 Last Admin: 07/24/21 18:02 Dose: Not Given Documented by: Iopamidol (Iopamidol 612 Mg/Ml 100 Ml Bottle) 100 ml IVPUSH ONETIME ONE Stop: 07/23/21 17:28 Last Admin: 07/23/21 17:59 Dose: 100 ml Documented by: Magnesium Citrate (Magnesium Citrate Solution 296 Ml Bottle) 296 ml PO ONETIME ONE Stop: 07/23/21 11:55 Last Admin: 07/23/21 12:00 Dose: 296 ml Documented by: Ondansetron HCl (Ondansetron 4 Mg/2 Ml Sdv) 4 mg IVPUSH ONETIME ONE Stop: 07/23/21 11:54 Last Admin: 07/23/21 11:59 Dose: 4 mg Documented by: Potassium Chloride (Potassium Chloride 10 Meq Tab.Er) 40 meq PO ONETIME ONE Stop: 07/24/21 12:46 Last Admin: 07/24/21 14:55 Dose: Not Given Documented by: - Exam General: Reports: Alert, Oriented Neck: Reports: Supple Lungs: Reports: Clear to Auscultation, Normal Respiratory Effort Cardiovascular: Reports: Regular Rate, Regular Rhythm GI/Abdominal Exam: Normal Bowel Sounds, Soft, Non-Tender Extremities: Pedal Edema (trace) Skin: Reports: Warm Neurological: Reports: No New Focal Deficit Psy/Mental Status: Reports: Alert, Normal Affect, Normal Mood
== END 2021-07-25 14:00 | disposition home or self-care (01) | DRG 389 ==
LOC: DL.ED 10:14 → DL.MS 19:20 → DL.ED 19:44
PROVIDERS: ADMIT Family Medicine; ATTEND Internal Medicine
PROC: 0D9670Z Drainage of Stomach with Drainage Device, Via Natural or Artificial Opening (ICD-10-PCS; principal; 2021-07-23)
DX: N12 Tubulo-interstitial nephritis, not specified as acute or chronic (principal); K56.7 Ileus, unspecified; K56.0 Paralytic ileus; E87.1 Hypo-osmolality and hyponatremia; M19.90 Unspecified osteoarthritis, unspecified site; E11.9 Type 2 diabetes mellitus without complications; I10 Essential (primary) hypertension; E78.5 Hyperlipidemia, unspecified; E11.65 Type 2 diabetes mellitus with hyperglycemia; E87.6 Hypokalemia; Z79.82 Long term (current) use of aspirin; Z79.84 Long term (current) use of oral hypoglycemic drugs; Z79.899 Other long term (current) drug therapy; Z86.73 Personal history of transient ischemic attack (TIA), and cerebral infarction without residual deficits; Z20.822 Contact with and (suspected) exposure to COVID-19; J10.1 Influenza due to other identified influenza virus with other respiratory manifestations; K59.09 Other constipation
CPT/HCPCS: 36415; 71046; 74019; 74177; 80053; 81003; 83605; 83735; 85025; 86140; A9270 ×2; J2405; J7030 ×2; Q9967; 80048; 82947; J0295; J1170; J1644; J3480; J7120; U0002

== ENCOUNTER 2021-11-29 06:20 | Day surgery (SDC) | payer MEDICARE, OTHER ==
[~2021-11-29 06:20] MED LIST: Midazolam 1 MG/ML 2 ML SDV ONE; Sodium Chloride 0.9% 10 ML Syringe FLUSH PRN; Sodium Chloride 0.9% 10 ML Syringe FLUSH SCH; fentaNYL 100 MCG/2 ML SDV ONE
[2021-11-29] MEDS ORDERED: Midazolam 1 MG/ML 2 ML SDV IV ONE ×3 (06:21→07:50)
[2021-11-29] MEDS ORDERED: fentaNYL 100 MCG/2 ML SDV IV ONE ×3 (06:21→07:49)
[2021-11-29] MEDS ORDERED: Dextrose 5%-0.45% NaCl 1,000 ML IV SCH (07:00)
[2021-11-29 10:03] VITALS: BP 146/77; PULSE 78
== END 2021-11-29 10:00 | disposition home or self-care (01) ==
LOC: DL.ENDO 06:20
PROVIDERS: ATTEND Internal Medicine Gastroenterology
DX: K25.9 Gastric ulcer, unspecified as acute or chronic, without hemorrhage or perforation (principal); D50.9 Iron deficiency anemia, unspecified; K26.9 Duodenal ulcer, unspecified as acute or chronic, without hemorrhage or perforation; E66.09 Other obesity due to excess calories; E78.5 Hyperlipidemia, unspecified; E11.9 Type 2 diabetes mellitus without complications; I10 Essential (primary) hypertension; H61.22 Impacted cerumen, left ear; E53.8 Deficiency of other specified B group vitamins; F10.21 Alcohol dependence, in remission; Z86.73 Personal history of transient ischemic attack (TIA), and cerebral infarction without residual deficits; Z79.82 Long term (current) use of aspirin
CPT/HCPCS: 43239; 87077; J2250; J3010; J7042; 88305

== ENCOUNTER 2021-11-30 06:15 | Day surgery (SDC) | payer MEDICARE, OTHER ==
[~2021-11-30 06:15] MED LIST changes: -Sodium Chloride 0.9% 10 ML Syringe FLUSH PRN; -Sodium Chloride 0.9% 10 ML Syringe FLUSH SCH
[2021-11-30] MEDS ORDERED: Dextrose 5%-0.45% NaCl 1,000 ML IV SCH (06:45)
[2021-11-30] MEDS ORDERED: fentaNYL 100 MCG/2 ML SDV IV ONE ×2 (07:43→07:44)
[2021-11-30] MEDS ORDERED: Midazolam 1 MG/ML 2 ML SDV IV ONE ×6 (07:44→07:51)
[2021-11-30 10:07] VITALS: BP 96/77; PULSE 98
== END 2021-11-30 10:05 | disposition home or self-care (01) ==
LOC: DL.ENDO 06:15
PROVIDERS: ATTEND Internal Medicine Gastroenterology
DX: D50.9 Iron deficiency anemia, unspecified (principal); N40.0 Benign prostatic hyperplasia without lower urinary tract symptoms; E66.09 Other obesity due to excess calories; E11.9 Type 2 diabetes mellitus without complications; I10 Essential (primary) hypertension; E78.5 Hyperlipidemia, unspecified; H61.22 Impacted cerumen, left ear; F10.21 Alcohol dependence, in remission; E53.8 Deficiency of other specified B group vitamins; Z68.30 Body mass index [BMI] 30.0-30.9, adult; Z86.73 Personal history of transient ischemic attack (TIA), and cerebral infarction without residual deficits
CPT/HCPCS: 45378; J2250; J3010; J7042

== ENCOUNTER 2025-04-18 08:50 | Emergency (ER) | payer MEDICARE, OTHER ==
[2025-04-18 09:32] LABS: PLATELET COUNT,PLT 125.0 10^3/uL (150-450); RED BLOOD CELL COUNT 4.65 10^6/uL (4.6-6.2); WHITE BLOOD CELL COUNT,WBC 6.9 10^3/uL (5.0-10.0)
[2025-04-18 10:17] LABS: A/G RATIO 1.3; ALANINE AMINOTRANSFERASE,ALT 24.0 U/L (16-63); ASPARTATE AMNIOTRANSFERASE,AST 12.0 U/L (15-37); BILIRUBIN TOTAL 0.4 mg/dL (0.2-1.0); BLOOD UREA NITROGEN,BUN 14.0 mg/dL (7-18); CARBON DIOXIDE,CO2 32.0 mmol/L (21-32); CHLORIDE,CL 99.0 mmol/L (98-107); CREATININE 1.33 mg/dL (0.70-1.30); EST CRCL DRUG DOSING (CG) 52.6 mL/min; ESTIMATED GFR 57.0 mL/min (>=60); GLUCOSE RANDOM 142.0 mg/dL (70-99); POTASSIUM,K 3.7 mmol/L (3.5-5.1); PROTEIN TOTAL,TP 7.7 g/dL (6.4-8.2); SODIUM,NA 137.0 mmol/L (136-145)
[2025-04-18] MEDS: Ketorolac 30 MG/ML SDV IM ONE (11:47)
[2025-04-18 12:34] VITALS: BP 160/104; PULSE 71
== END 2025-04-18 12:25 | disposition home or self-care (01) ==
LOC: DL.ED 08:50
DX: M25.512 Pain in left shoulder (principal); I10 Essential (primary) hypertension; E11.9 Type 2 diabetes mellitus without complications; Z79.899 Other long term (current) drug therapy; Z79.84 Long term (current) use of oral hypoglycemic drugs; Z79.82 Long term (current) use of aspirin; Z86.73 Personal history of transient ischemic attack (TIA), and cerebral infarction without residual deficits
CPT/HCPCS: 36415; 71046; 80053; 84484; 85027; 93005; 96372; 99284; A9270; J1885; 93010; 99283

== ENCOUNTER 2025-05-05 16:20 | Inpatient (IN) | payer MEDICARE ==
[2025-05-05] MEDS ORDERED: Sodium Chloride 0.9% 10 ML Syringe FLUSH PRN (16:22)
[2025-05-05] MEDS: Methylnaltrexone 12 MG/0.6 ML SDV SUBCUT ONE (16:32)
[2025-05-05] MEDS: Metoprolol Tartrate 5 MG/5 ML SDV IVPUSH ONE (16:32)
[2025-05-05 16:45] LABS: BASOPHILS PERCENT AUTO 0.2 % (0.0-1.0); EOSINOPHILS PERCENT AUTO 0.0 % (1.0-3.0); LYMPHOCYTES PERCENT AUTO 2.9 % (20.5-50.1); MONOCYTES PERCENT AUTO 10.8 % (2-8); NEUTROPHILS PERCENT AUTO 86.1 % (42.2-75.2); PLATELET COUNT,PLT 362 10^3/uL (150-450); RED BLOOD CELL COUNT 4.54 10^6/uL (4.6-6.2); WHITE BLOOD CELL COUNT,WBC 28.2 10^3/uL (5.0-10.0)
[2025-05-05 17:12] LABS: A/G RATIO 1.1; ALANINE AMINOTRANSFERASE,ALT 17 U/L (16-63); ASPARTATE AMNIOTRANSFERASE,AST 8 U/L (15-37); BILIRUBIN TOTAL 0.6 mg/dL (0.2-1.0); BLOOD UREA NITROGEN,BUN 26 mg/dL (7-18); CARBON DIOXIDE,CO2 26 mmol/L (21-32); CHLORIDE,CL 84 mmol/L (98-107); CREATININE 2.04 mg/dL (0.70-1.30); GLUCOSE RANDOM 251 mg/dL (70-99); PROTEIN TOTAL,TP 8.4 g/dL (6.4-8.2); TSH ULTRASENSITIVE 0.98 uIU/mL (0.36-3.74)
[2025-05-05 17:18] LABS: POTASSIUM,K 4.4 mmol/L (3.5-5.1); SODIUM,NA 123 mmol/L (136-145)
[2025-05-05 17:20] LABS: ESTIMATED GFR 34 mL/min (>=60)
[2025-05-05 17:31] LABS: INR 1.2 (0.9-1.2); PTT,PARTIAL THROMBOPLSTIN TIME 30.2 SEC (22.0-34.0)
[2025-05-05 17:32] LABS: APPEARANCE,URINE CLEAR (CLEAR); GLUCOSE,URINE 100 (NEGATIVE); OCCULT BLOOD,URINE MODERATE (NEGATIVE)
[2025-05-05 17:40] LABS: EPITHELIAL CELLS,URINE FEW /HPF (NOT SEEN)
[2025-05-05] MEDS: Magnesium Sulfate 2 GM/50 mL 2 GM in Premix Bag 1 BAG IV ONE ×2 (17:51→21:14)
[2025-05-05 18:05] LABS: LYMPHOCYTES PERCENT MAN 5 % (20-50); MONOCYTES PERCENT MAN 8 % (2-8); SEG NEUTROPHILS PERCENT MAN 87 % (42-75)
[2025-05-05 18:06] LABS: PLATELET COUNT ESTIMATE ADEQUATE
[2025-05-05 18:43] LABS: LACTIC ACID 2.1 mmol/L (0.4-2.0)
[2025-05-05] MEDS ORDERED: 50% Dextrose in Water 50 ML Syringe IVPUSH PRN (19:43)
[2025-05-05 20:16] LABS: IRON,FE 19.0 ug/dL (65-175); PERCENT FE SATURATION 6.9 % (20.0-50.0)
[2025-05-05] MEDS: Metoprolol Tartrate 5 MG/5 ML SDV IVPUSH SCH (20:23)
[2025-05-05] MEDS: Lactulose Soln 10 GM/15 ML 30 ML UD Cup PO ONE (20:40)
[2025-05-05 20:49] LABS: PSA DIAGNOSTIC 9.86 ng/mL (0.00-4.00)
[2025-05-05 20:54] LABS: FOLIC ACID > 20.0 ng/mL (8.6-58.9)
[2025-05-05] MEDS: Lactated Ringers 1,000 ML IV SCH (21:03)
[2025-05-05] MEDS: Ciprofloxacin in D5W 400 MG in Premix Bag 1 BAG IV ONE (21:07)
[2025-05-05] MEDS: Ciprofloxacin in D5W 200 MG in Premix Bag 1 BAG IV SCH (21:16)
[2025-05-05] MEDS: Heparin Sodium 5,000 Units/ML Vial SUBCUT SCH (21:27)
[2025-05-06 06:14] LABS: BASOPHILS PERCENT AUTO 0.3 % (0.0-1.0); EOSINOPHILS PERCENT AUTO 0.2 % (1.0-3.0); LYMPHOCYTES PERCENT AUTO 5.6 % (20.5-50.1); MONOCYTES PERCENT AUTO 10.9 % (2-8); NEUTROPHILS PERCENT AUTO 83.0 % (42.2-75.2); PLATELET COUNT,PLT 290 10^3/uL (150-450); RED BLOOD CELL COUNT 3.71 10^6/uL (4.6-6.2); WHITE BLOOD CELL COUNT,WBC 16.4 10^3/uL (5.0-10.0)
[2025-05-06 06:36] LABS: BLOOD UREA NITROGEN,BUN 19.0 mg/dL (7-18); CARBON DIOXIDE,CO2 28.0 mmol/L (21-32); CHLORIDE,CL 95.0 mmol/L (98-107); CREATININE 1.42 mg/dL (0.70-1.30); EST CRCL DRUG DOSING (CG) 49.27 mL/min; GLUCOSE RANDOM 171.0 mg/dL (70-99); PHOSPHORUS 3.7 mg/dL (2.6-4.7); POTASSIUM,K 4.3 mmol/L (3.5-5.1); SODIUM,NA 130.0 mmol/L (136-145)
[2025-05-06 06:43] LABS: ESTIMATED GFR 53.0 mL/min (>=60)
[2025-05-06] MEDS: Cyanocobalamin (Vitamin B12) 1,000 MCG/ML SDV IM SCH (08:34)
[2025-05-06] MEDS ORDERED: Lactulose Soln 10 GM/15 ML 30 ML UD Cup PO SCH (10:15)
[2025-05-06] MEDS: Lactulose Soln 10 GM/15 ML 30 ML UD Cup PO SCH (10:43)
[2025-05-06] MEDS: Magnesium Citrate Solution 296 ML Bottle PO ONE (18:17)
[2025-05-06] MEDS: Ciprofloxacin in D5W 400 MG in Premix Bag 1 BAG IV SCH (20:41)
[2025-05-07 06:07] LABS: BASOPHILS PERCENT AUTO 0.3 % (0.0-1.0); EOSINOPHILS PERCENT AUTO 0.3 % (1.0-3.0); LYMPHOCYTES PERCENT AUTO 5.7 % (20.5-50.1); MONOCYTES PERCENT AUTO 9.2 % (2-8); NEUTROPHILS PERCENT AUTO 84.5 % (42.2-75.2); PLATELET COUNT,PLT 335 10^3/uL (150-450); RED BLOOD CELL COUNT 4.09 10^6/uL (4.6-6.2); WHITE BLOOD CELL COUNT,WBC 17.8 10^3/uL (5.0-10.0)
[2025-05-07 06:21] LABS: BLOOD UREA NITROGEN,BUN 18.0 mg/dL (7-18); CARBON DIOXIDE,CO2 27.0 mmol/L (21-32); CHLORIDE,CL 94.0 mmol/L (98-107); CREATININE 1.45 mg/dL (0.70-1.30); EST CRCL DRUG DOSING (CG) 48.25 mL/min; GLUCOSE RANDOM 221.0 mg/dL (70-99); POTASSIUM,K 3.5 mmol/L (3.5-5.1); SODIUM,NA 130.0 mmol/L (136-145)
[2025-05-07 06:25] LABS: ESTIMATED GFR 52.0 mL/min (>=60)
[2025-05-07 15:24] LABS: APPEARANCE,URINE SLIGHTLY CLOUDY (CLEAR); GLUCOSE,URINE 250 (NEGATIVE); OCCULT BLOOD,URINE LARGE (NEGATIVE)
[2025-05-07 15:37] LABS: EPITHELIAL CELLS,URINE FEW /HPF (NOT SEEN)
[2025-05-08 07:02] LABS: BASOPHILS PERCENT AUTO 0.2 % (0.0-1.0); EOSINOPHILS PERCENT AUTO 0.4 % (1.0-3.0); LYMPHOCYTES PERCENT AUTO 5.2 % (20.5-50.1); MONOCYTES PERCENT AUTO 8.1 % (2-8); NEUTROPHILS PERCENT AUTO 86.1 % (42.2-75.2); PLATELET COUNT,PLT 414 10^3/uL (150-450); RED BLOOD CELL COUNT 4.28 10^6/uL (4.6-6.2); WHITE BLOOD CELL COUNT,WBC 15.2 10^3/uL (5.0-10.0)
[2025-05-08 07:18] LABS: BLOOD UREA NITROGEN,BUN 22.0 mg/dL (7-18); CARBON DIOXIDE,CO2 27.0 mmol/L (21-32); CHLORIDE,CL 92.0 mmol/L (98-107); CREATININE 2.04 mg/dL (0.70-1.30); EST CRCL DRUG DOSING (CG) 34.29 mL/min; GLUCOSE RANDOM 239.0 mg/dL (70-99); POTASSIUM,K 3.3 mmol/L (3.5-5.1); SODIUM,NA 130.0 mmol/L (136-145)
[2025-05-08 07:20] LABS: ESTIMATED GFR 34.0 mL/min (>=60)
[2025-05-08] MEDS: Metoprolol Tartrate 5 MG/5 ML SDV IVPUSH SCH (07:59)
[2025-05-08] MEDS: Potassium Chloride 20 MEQ in Premix Bag 1 BAG IV ONE (10:44)
[2025-05-08] MEDS ORDERED: Lactated Ringers 1,000 ML IV SCH (10:45)
[2025-05-08] MEDS: Ondansetron 4 MG/2 ML SDV IVPUSH PRN (19:39)
[2025-05-09 06:21] LABS: BASOPHILS PERCENT AUTO 0.3 % (0.0-1.0); EOSINOPHILS PERCENT AUTO 1.0 % (1.0-3.0); LYMPHOCYTES PERCENT AUTO 8.3 % (20.5-50.1); MONOCYTES PERCENT AUTO 13.3 % (2-8); NEUTROPHILS PERCENT AUTO 77.1 % (42.2-75.2); PLATELET COUNT,PLT 382 10^3/uL (150-450); RED BLOOD CELL COUNT 3.71 10^6/uL (4.6-6.2); WHITE BLOOD CELL COUNT,WBC 13.8 10^3/uL (5.0-10.0)
[2025-05-09 06:38] LABS: BLOOD UREA NITROGEN,BUN 26.0 mg/dL (7-18); CARBON DIOXIDE,CO2 28.0 mmol/L (21-32); CHLORIDE,CL 98.0 mmol/L (98-107); CREATININE 1.83 mg/dL (0.70-1.30); EST CRCL DRUG DOSING (CG) 38.23 mL/min; GLUCOSE RANDOM 166.0 mg/dL (70-99); POTASSIUM,K 3.8 mmol/L (3.5-5.1); SODIUM,NA 136.0 mmol/L (136-145)
[2025-05-09 06:39] LABS: ESTIMATED GFR 39.0 mL/min (>=60)
[2025-05-09] MEDS: Metoprolol Tartrate 5 MG/5 ML SDV IVPUSH SCH (10:42)
[2025-05-09] MEDS: Furosemide 40 MG/4 ML VIAL IVPUSH ONE (10:43)
[2025-05-09] MEDS: Metoprolol Tartrate 5 MG/5 ML SDV IV ONE (10:48)
[2025-05-09] MEDS: D5 1/2 NS w/ 40 mEq/L KCl 1,000 ML IV SCH (10:56)
[2025-05-09 14:56] VITALS: BP 153/81; PULSE 83
== END 2025-05-09 15:45 | DRG 871 ==
LOC: DL.ED 16:20 → DL.MS 18:40
PROVIDERS: ADMIT Internal Medicine; ATTEND Internal Medicine
PROC: 0T9B70Z Drainage of Bladder with Drainage Device, Via Natural or Artificial Opening (ICD-10-PCS; principal; 2025-05-05)
PROC: 3E03329 Introduction of Other Anti-infective into Peripheral Vein, Percutaneous Approach (ICD-10-PCS; 2025-05-05)
DX: A41.9 Sepsis, unspecified organism (principal); N17.0 Acute kidney failure with tubular necrosis; E87.20 Acidosis, unspecified; N13.6 Pyonephrosis; E87.1 Hypo-osmolality and hyponatremia; N13.8 Other obstructive and reflux uropathy; K56.7 Ileus, unspecified; K56.609 Unspecified intestinal obstruction, unspecified as to partial versus complete obstruction; R65.20 Severe sepsis without septic shock; E83.42 Hypomagnesemia; I12.9 Hypertensive chronic kidney disease with stage 1 through stage 4 chronic kidney disease, or unspecified chronic kidney disease; K76.0 Fatty (change of) liver, not elsewhere classified; D50.9 Iron deficiency anemia, unspecified; K59.03 Drug induced constipation; C61 Malignant neoplasm of prostate; N18.9 Chronic kidney disease, unspecified; E11.22 Type 2 diabetes mellitus with diabetic chronic kidney disease; N40.1 Benign prostatic hyperplasia with lower urinary tract symptoms; H91.90 Unspecified hearing loss, unspecified ear; H54.7 Unspecified visual loss; M19.90 Unspecified osteoarthritis, unspecified site; G89.29 Other chronic pain; E86.1 Hypovolemia; Z98.890 Other specified postprocedural states; K59.09 Other constipation; N39.0 Urinary tract infection, site not specified; Z86.73 Personal history of transient ischemic attack (TIA), and cerebral infarction without residual deficits; Z79.82 Long term (current) use of aspirin; T40.2X5A Adverse effect of other opioids, initial encounter; Y92.89 Other specified places as the place of occurrence of the external cause; I10 Essential (primary) hypertension; E11.9 Type 2 diabetes mellitus without complications; Z79.84 Long term (current) use of oral hypoglycemic drugs; Z79.899 Other long term (current) drug therapy
CPT/HCPCS: 36415; 51702; 71045; 74176; 80053; 81001; 82607; 82746; 83036; 83540; 83550; 83605; 83735; 84153; 84443; 84484; 85025; 85610; 85730; 86140; 87040 ×2; 93005; 93010; 96372; 96374; 96375; 99285 ×2; G0103; J0696; J2212; J3475; J3490; J7030; 74018; 80048; 80202; 82272; 82947; 83880; 84100; 87086; 97161-GP; 97165-GO; 99223; 99232; 99233; 99239; A9270-GY; J0744; J1644; J1815-GY; J2405; J3373; J3374; J3420; J3480; J7040; J7050; J7120; Q0138

== ENCOUNTER 2025-05-29 12:06 | Observation (INO) | payer MEDICARE, OTHER ==
[2025-05-29] MEDS ORDERED: Sodium Chloride 0.9% 10 ML Syringe FLUSH PRN ×2 (12:24→12:33)
[2025-05-29 12:45] LABS: PLATELET COUNT,PLT 343 10^3/uL (150-450); RED BLOOD CELL COUNT 4.76 10^6/uL (4.6-6.2); WHITE BLOOD CELL COUNT,WBC 11.9 10^3/uL (5.0-10.0)
[2025-05-29 12:53] LABS: NEUTROPHILS PERCENT AUTO 73.0 % (42.2-75.2)
[2025-05-29 12:54] LABS: BASOPHILS PERCENT AUTO 0.3 % (0.0-1.0); EOSINOPHILS PERCENT AUTO 0.6 % (1.0-3.0); LYMPHOCYTES PERCENT AUTO 14.3 % (20.5-50.1); MONOCYTES PERCENT AUTO 11.8 % (2-8)
[2025-05-29 13:13] LABS: A/G RATIO 1.3; ALANINE AMINOTRANSFERASE,ALT 27 U/L (16-63); ASPARTATE AMNIOTRANSFERASE,AST 19 U/L (15-37); BAND PERCENT MAN 2 %; BILIRUBIN TOTAL 0.6 mg/dL (0.2-1.0); BLOOD UREA NITROGEN,BUN 16 mg/dL (7-18); CARBON DIOXIDE,CO2 26 mmol/L (21-32); CHLORIDE,CL 82 mmol/L (98-107); CREATININE 1.35 mg/dL (0.70-1.30); EOSINOPHILS PERCENT MAN 1 % (1-3); EST CRCL DRUG DOSING (CG) 50.19 mL/min; GLUCOSE RANDOM 199 mg/dL (70-99); LYMPHOCYTES PERCENT MAN 14 % (20-50); MONOCYTES PERCENT MAN 7 % (2-8); MYELOCYTE PERCENT MAN 2; PLATELET COUNT ESTIMATE ADEQUATE; POTASSIUM,K 4.0 mmol/L (3.5-5.1); PROTEIN TOTAL,TP 8.2 g/dL (6.4-8.2); SEG NEUTROPHILS PERCENT MAN 74 % (42-75); SODIUM,NA 120 mmol/L (136-145)
[2025-05-29 13:14] LABS: ESTIMATED GFR 56 mL/min (>=60)
[2025-05-29] MEDS: Magnesium Sulfate 2 GM/50 mL 2 GM in Premix Bag 1 BAG IV ONE ×2 (13:24→15:34)
[2025-05-29 14:36] LABS: BLOOD UREA NITROGEN,BUN 16.0 mg/dL (7-18); CARBON DIOXIDE,CO2 28.0 mmol/L (21-32); CHLORIDE,CL 87.0 mmol/L (98-107); CREATININE 1.26 mg/dL (0.70-1.30); EST CRCL DRUG DOSING (CG) 53.77 mL/min; GLUCOSE RANDOM 185.0 mg/dL (70-99); POTASSIUM,K 4.6 mmol/L (3.5-5.1); SODIUM,NA 122.0 mmol/L (136-145)
[2025-05-29 14:37] LABS: ESTIMATED GFR 61.0 mL/min (>=60)
[2025-05-29 14:51] LABS: T4 FREE 1.47 ng/dL (0.76-1.46); TSH ULTRASENSITIVE 0.98 uIU/mL (0.36-3.74)
[2025-05-29] MEDS: NS + KCl 20mEq/L 1,000 ML IV SCH (18:44)
[2025-05-29] MEDS: Heparin Sodium 5,000 Units/ML Vial SUBCUT SCH (21:22)
[2025-05-30 06:29] LABS: BASOPHILS PERCENT AUTO 0.7 % (0.0-1.0); EOSINOPHILS PERCENT AUTO 1.1 % (1.0-3.0); LYMPHOCYTES PERCENT AUTO 17.8 % (20.5-50.1); MONOCYTES PERCENT AUTO 16.0 % (2-8); NEUTROPHILS PERCENT AUTO 64.4 % (42.2-75.2); PLATELET COUNT,PLT 485 10^3/uL (150-450); RED BLOOD CELL COUNT 4.26 10^6/uL (4.6-6.2); WHITE BLOOD CELL COUNT,WBC 7.6 10^3/uL (5.0-10.0)
[2025-05-30 06:48] LABS: BLOOD UREA NITROGEN,BUN 12.0 mg/dL (7-18); CARBON DIOXIDE,CO2 27.0 mmol/L (21-32); CHLORIDE,CL 94.0 mmol/L (98-107); CREATININE 1.12 mg/dL (0.70-1.30); EST CRCL DRUG DOSING (CG) 60.49 mL/min; GLUCOSE RANDOM 110.0 mg/dL (70-99); PHOSPHORUS 3.1 mg/dL (2.6-4.7); POTASSIUM,K 4.4 mmol/L (3.5-5.1); SODIUM,NA 131.0 mmol/L (136-145)
[2025-05-30 06:55] LABS: ESTIMATED GFR 70.0 mL/min (>=60)
[2025-05-30 11:05] VITALS: BP 129/75; PULSE 111
== END 2025-05-30 11:00 | disposition home or self-care (01) ==
LOC: DL.ED 12:06 → DL.MS 13:25
PROVIDERS: ADMIT Internal Medicine; ATTEND Internal Medicine
DX: E87.1 Hypo-osmolality and hyponatremia (principal); E86.1 Hypovolemia; E83.42 Hypomagnesemia; N13.0 Hydronephrosis with ureteropelvic junction obstruction; K76.0 Fatty (change of) liver, not elsewhere classified; G45.9 Transient cerebral ischemic attack, unspecified; I10 Essential (primary) hypertension; Z79.84 Long term (current) use of oral hypoglycemic drugs; E11.9 Type 2 diabetes mellitus without complications; Z79.82 Long term (current) use of aspirin; Z87.891 Personal history of nicotine dependence; Z79.899 Other long term (current) drug therapy
CPT/HCPCS: 36415; 80048; 80053; 83735; 83930; 83935; 84100; 84300; 84439; 84443; 85025; 86140; A9270; J1644; J3475; J3480; J7030; 99222; 99239